=== PATIENT | female | born 1955 | race Caucasian/White ===

== ENCOUNTER 2021-01-19 00:26 | Inpatient (IN) | payer MEDICARE, OTHER ==
[2021-01-19] MEDS ORDERED: Zofran 4 MG/2 ML VIAL IV ONE (01:06)
[2021-01-19] MEDS ORDERED: Zofran 4 MG/2 ML VIAL ONE (01:38)
[2021-01-19 01:54] LABS: Basophil (Absolute #) 0.04 (0-0.4); Eosinophil (Absolute #) 0.31 (0-0.5); Hematocrit 49.3 % (35-47); Hemoglobin 15.7 gm/dl (12.0-16.0); Lymphocyte (Absolute #) 2.43 (1.0-4.6); Mean Cell Volume 93.5 fl (78-100); Mean Corpuscular Hemoglobin 29.8 pg (26-32); Mean Corpuscular Hgb Concent. 31.8 g/dl (32-36); Mean Platelet Volume 9.5 fl (7.5-11.0); Monocyte (Absolute #) 1.32 (0.0-1.3); Platelet Count 316 K/mm3 (150-450); Red Blood Count 5.27 M/mm3 (4.1-5.4); Red Cell Distribution Width 13.5 % (11.5-14.0)
[2021-01-19] MEDS ORDERED: TORAdol 30 mg Injection IV ONE (01:59)
[2021-01-19] MEDS ORDERED: TORAdol 30 mg Injection ONE (02:00)
[2021-01-19 02:06] LABS: ALBUMIN 4.9 g/dL (3.5-5.0); ALKALINE PHOSPHATASE 105 U/L (38-126); AMYLASE 239 U/L (30-110); ANION GAP 18.7 MEQ/L (5-15); Appearance CLEAR (CLEAR); BLOOD UREA NITROGEN 16 mg/dL (7-17); Bilirubin NEGATIVE (NEGATIVE); Blood NEGATIVE Ery/ul (0-5); CHLORIDE 101 mmol/L (98-107); Calcium 10.4 mg/dL (8.4-10.2); Carbon Dioxide 25 mmol/L (22-30); Creatinine 1 0.72 mg/dL (0.52-1.04); EST GLOMERULAR FILTRATION RATE > 60.0 ML/MIN; Glucose 174 mg/dL (74-106); Glucose NEGATIVE (NEGATIVE); Hyaline Casts 0-2 /LPF (0-2); Ketones NEGATIVE (NEGATIVE); LIPASE 59 U/L (23-300); Leukocyte Esterase NEGATIVE (NEGATIVE); Nitrite NEGATIVE (NEGATIVE); Potassium 3.7 mmol/L (3.5-5.1); Protein,Urine Dip NEGATIVE (Negative); RBC 0-2 /HPF (0-2); SGOT/AST 30 U/L (14-36); SGPT/ALT 21 U/L (0-35); SODIUM 141 mmol/L (137-145); Specific Gravity 1.006 (1.005-1.025); Total Protein 8.2 g/dL (6.3-8.2); Urobilinogen NEGATIVE mg/dL (0-1)
[2021-01-19 02:14] LABS: White Blood Count 26.4 K/mm3 (4.0-10.5)
[2021-01-19 02:21] LABS: Slide Review 1 NO
[2021-01-19] MEDS ORDERED: MORPHINE SULFATE 2 MG INJ IV ONE ×2 (02:43→05:20)
[2021-01-19] MEDS ORDERED: MORPHINE SULFATE 2 MG INJ ONE ×2 (02:44→05:28)
--- NOTE | 2021-01-19 02:48 | ERPHSYRPT ---
- History of Present Illness Historian: patient, EMS Patient Subjective Stated Complaint: pt states "I was sitting on the couch and my stomach began to hurt and I had diarrhea." Triage Nursing Assessment: pt came into the er via ambulance; pt is axo x4; c/o abd pain; pt states 3/10 pain to abd; c/o N/V/D; pt has had diarrhea for the past 1.5 hours; pt states all over abd pain; pt has active liquid rust in color stool; abd is large, soft; generalized abd tenderness; pt has been on the toliet the entire time of assessment; hypertensive; pt states she had a scope on nov 14 with polyps removed Physician History: 65 yo wf w N/V/D starting at 23:00. Pt states that the pain is 8/10 and cramping. She denies chest pain/fever/dyspnea/dysuria/hematuria/melena. Stool appears to have some blood in it. Timing/Duration: other (23:00) Activities at Onset: rest Quality: cramping Abdominal Pain Onset Location: generalized abdomen Pain Radiation: no radiation Severity of Pain-Max: severe Severity of Pain-Current: severe Modifying Factors: Improves With: nothing Associated Symptoms: diarrhea, nausea, vomiting, weakness, No back, No chest pain, No diaphoresis, No fever/chills, No fatigue, No headache, No heartburn, No loss of appetite, No neck pain, No rash, No shortness of breath, No syncope Previous symptoms: no prior history Allergies/Adverse Reactions: Iodinated Contrast Media Allergy (Severe, Verified 01/19/21:25) Anaphylactic Reaction nitrofurantoin [From Macrodantin] Allergy (Severe, Verified 01/19/21:25) Anaphylactic Reaction acetaminophen [From Vicodin] Allergy (Verified 01/19/21:25) Itching amoxicillin [From Augmentin] Allergy (Verified 01/19/21:) Vomiting clavulanic acid [From Augmentin] Allergy (Verified 01/19/21) Vomiting fentanyl Allergy (Verified 01/19/21) Hives hydrocodone [From Vicodin] Allergy (Verified 01/19/21:) Itching hydromorphone [From Dilaudid] Allergy (Verified 01/19/21:) Hives Sulfa (Sulfonamide Antibiotics) Allergy (Verified 01/19/21 01:25) Hives sulfamethoxazole [From ] Allergy (Verified 01/19/21 01:25) Vomiting trimethoprim [From ] Allergy (Verified 01/19/21 01:25) Vomiting Home Medications: Amlodipine Besylate 5 mg [Norvasc 5 mg] 5 mg PO DAILY 01/19/21 [History] Aspirin 81 mg PO HS 01/19/21 [History] Atorvastatin Calcium [Lipitor] 20 mg PO HS 01/19/21 [History] Bupropion HCl [Wellbutrin Sr] 200 mg PO BID 01/19/21 [History] Carvedilol 6.25 mg [Coreg 6.25 MG] 6.25 mg PO BID 01/19/21 [History] Dicyclomine HCl 20 mg [Bentyl 20 mg] 20 mg PO TID PRN PRN 01/19/21 [History] Estradiol [Estrace] 42.5 gm VG DAILY 01/19/21 [History] Nitroglycerin 0.4 mg SL Q5MIN PRN MR X 3 PRN 01/19/21 [History] Oxybutynin Chloride [Oxybutynin Chloride ER] 10 mg PO BID 01/19/21 [History] Umeclidinium Brm/Vilanterol Tr [Anoro Ellipta 62.5-25 Mcg INH] 1 each IH LUNCH 01/19/21 [History] lisinopriL [Lisinopril] 10 mg PO HS 01/19/21 [History] Hx Tetanus, Diphtheria Vaccination/Date Given: No Hx Influenza Vaccination/Date Given: No Hx Pneumococcal Vaccination/Date Given: No Travel Risk - International Travel Have you traveled outside of the country in past 3 weeks: No - Coronavirus Screening Are you exhibiting any of the following symptoms?: Yes Symptoms: Vomiting/Diarrhea Close contact with a COVID-19 positive Pt in past 14-21 Days: No - Vaccine Status Have you recieved a Covid-19 vaccination: No - Review of Systems Constitutional: No Symptoms, Fatigue Eyes: No Symptoms Ears, Nose, & Throat: No Symptoms Respiratory: No Symptoms Cardiac: No Symptoms Abdominal/Gastrointestinal: No Symptoms, Abdominal Pain, Nausea, Vomiting, Diarrhea Genitourinary Symptoms: No Symptoms Musculoskeletal: No Symptoms Skin: No Symptoms Neurological: No Symptoms Psychological: No Symptoms Endocrine: No Symptoms Hematologic/Lymphatic: No Symptoms Immunological/Allergic: No Symptoms - Past Medical History Pertinent Past Medical History: Yes Neurological History: Stroke ENT History: No Pertinent History Cardiac History: Hypertension, Myocardial Infarction ([place]), Other Respiratory History: Asthma Endocrine Medical History: No Pertinent History Musculoskeletal History: No Pertinent History GI Medical History: Hemorrhoids, Polyps History: Other Psycho-Social History: Anxiety, Depression Female Reproductive Disorders: No Pertinent History Other Medical History: nodule on lung and adrenal gland, frequent UTI, mitral valve prolapse - Past Surgical History Past Surgical History: Yes Neuro Surgical History: No Pertinent History Cardiac: Cardiac Catheterization Respiratory: No Pertinent History Gastrointestinal: Cholecystectomy Genitourinary: No Pertinent History Musculoskeletal: Orthopedic Surgery Female Surgical History: Hysterectomy, Section, Tubal Ligation Other Surgical History: left ankle, rotator cuff, carpal tunnel, blockage to rt corotid - Social History Smoking Status: Never smoker Exposure to second hand smoke: Yes Drug Use: none Patient Lives Alone: No - Female History Hx Now: No - Nursing Vital Signs Nursing Vital Signs: Initial Vital Signs Temperature 97.8 F 01/19/21 00:41 Pulse Rate 68 01/19/21 00:41 Respiratory Rate 18 01/19/21 00:41 Blood Pressure 194/96 01/19/21 00:41 O2 Sat by Pulse Oximetry 99 01/19/21 00:41 Pain Scale Pain Intensity 9 Hypertensive - Physical Exam General Appearance: mild distress Eye Exam: PERRL/EOMI, eyes nml inspection Ears, Nose, Throat Exam: normal ENT inspection, TMs normal, pharynx normal, moist mucous membranes Neck Exam: normal inspection, non-tender, supple, full range of motion, No men ingismus, No mass, No Brudzinski, No Kernig's Respiratory Exam: normal breath sounds, lungs clear, airway intact Cardiovascular Exam: regular rate/rhythm, normal heart sounds, normal peripheral pulses, No murmur Gastrointestinal/Abdomen Exam: soft, normal bowel sounds, tenderness (Diffuse TTP w guarding) Back Exam: normal inspection, normal range of motion, No CVA tenderness, No vertebral tenderness Extremity Exam: normal inspection, normal range of motion Neurologic Exam: alert, oriented x 3, cooperative, anesthesiology fellow II-XII nml as tested, normal mood/affect, sensation nml, No motor deficits, No sensory deficit Skin Exam: normal color, warm, dry Lymphatic Exam: No adenopathy SpO2 Interpretation: normal SpO2: 99 O2 Delivery: Room Air - Course EKG Interpreted by Me: RATE (NSR/R74/Normal QT-QTc/Poor R wave progression/RBBB) Ordered Tests: Medication Summary Discontinued Medications Generic Name Dose Route Start Last Admin Trade Name Freq PRN Reason Stop Dose Admin Acetaminophen 650 mg 01/20/21 15:12 01/25/21 04:58 Acetaminophen 325 Mg Tablet PO 02/19/21 15:11 650 mg Q4H PRN PRN Administration PAIN AND/OR FEVER Amlodipine Besylate 5 mg 01/19/21 13:00 01/24/21 09:35 Amlodipine Besylate 5 Mg Tablet PO 02/18/21 12:59 5 mg DAILY OSORIO Administration Carvedilol 6.25 mg 01/19/21 17:00 01/25/21 09:02 Carvedilol 6.25 Mg Tablet PO 02/18/21 16:59 6.25 mg BIDWM OSORIO Administration Diphenhydramine HCl 25 mg 01/20/21 17:23 01/20/21 17:33 Diphenhydramine Hcl 25 Mg Capsule PO 02/19/21 17:22 25 mg QIDPRN PRN Administration ITCHING Enalaprilat 1.25 mg 01/19/21 03:43 01/19/21 03:48 Enalaprilat 2.5 Mg Injection IV 01/19/21 03:44 1.25 mg STAT ONE Administration Enalaprilat Confirm 01/19/21 03:48 Enalaprilat 2.5 Mg Injection Administered 01/19/21 03:49 Dose 2.5 mg IV .STK-MED ONE Hydromorphone HCl 30 mg 01/19/21 12:38 01/20/21 18:21 Hydromorphone Hcl 30 Mg/30 Ml Mortgage Loan Assistant Vial IV 01/24/21 12:37 30 mg UD PRN Administration PAIN Hydromorphone HCl 2 mg 01/20/21 12:15 01/23/21 19:49 Hydromorphone 1 Mg/1ml Inj 1 Mg/Ml Syringe IV 01/25/21 12:14 2 mg Q3H PRN PRN Administration PAIN Hydromorphone HCl Confirm 01/22/21 01:09 Hydromorphone 1 Mg/1ml Inj 1 Mg/Ml Syringe Administered 01/22/21 01:10 Dose 2 mg .ROUTE .STK-MED ONE Sodium Chloride 1,000 mls @ 50 mls/hr 01/19/21 06:00 01/24/21 17:58 Sodium Chloride 0.9% 1000 Ml IV 02/18/21 05:59 50 mls/hr .Q20H OSORIO Administration Levofloxacin/Dextrose 500 mg in 100 mls @ 100 mls/hr 01/19/21 10:00 01/20/21 08:58 Levofloxacin 500mg/100ml D5w IV 02/18/21 09:59 100 mls/hr Q24H10 OSORIO Administration Metronidazole 500 mg in 100 mls @ 200 mls/hr 01/19/21 06:00 01/25/21 05:54 Flagyl 500 Mg Ivpb IV 02/18/21 05:59 200 mls/hr Q6HT OSORIO Administration Sodium Chloride 1,000 mls @ 999 mls/hr 01/19/21 05:55 01/19/21 06:04 Sodium Chloride 0.9% 1000 Ml IV 01/19/21 06:55 999 mls/hr .Q1H1M STA Administration Meropenem 1 g/ Sodium Chloride 100 mls @ 200 mls/hr 01/21/21 08:00 01/25/21 05:00 IV 01/26/21 07:59 200 mls/hr Q8HT OSORIO Administration Potassium Chloride 20 meq in 100 mls @ 50 mls/hr 01/23/21 07:00 01/23/21 10:57 Potassium Chloride 20 Meq In Water 100ml IV 01/23/21 10:59 50 mls/hr Q2H OSORIO Administration Ketorolac Tromethamine 15 mg 01/19/21 01:59 01/19/21 02:04 Ketorolac Tromethamine 30 Mg/Ml Inj IV 01/19/21 02:00 15 mg STAT ONE Administration Ketorolac Tromethamine Confirm 01/19/21 02:00 Ketorolac Tromethamine 30 Mg/Ml Inj Administered 01/19/21 02:01 Dose 30 mg .ROUTE .STK-MED ONE Lisinopril 10 mg 01/19/21 22:00 01/24/21 21:26 Lisinopril 10 Mg Tablet PO 02/18/21 21:59 10 mg HS OSORIO Administration Miscellaneous Information 1 each 01/19/21 12:45 Medication Intervention 1 Each Each 02/18/21 12:44 .RT TO CHECK WITH PT [facility] Miscellaneous Information 1 each 01/19/21 13:00 Medication Intervention 1 Each Each 02/18/21 12:59 .RN TO CHECK WITH PT [facility] Morphine Sulfate 2 mg 01/19/21 02:43 01/19/21 02:46 Morphine Sulfate 2 Mg/Ml Inj IV 01/19/21 02:44 2 mg STAT ONE Administration Morphine Sulfate Confirm 01/19/21 02:44 Morphine Sulfate 2 Mg/Ml Inj Administered 01/19/21 02:45 Dose 2 mg .ROUTE .STK-MED ONE Morphine Sulfate 2 mg 01/19/21 05:20 01/19/21 05:29 Morphine Sulfate 2 Mg/Ml Inj IV 01/19/21 05:21 2 mg STAT ONE Administration Morphine Sulfate Confirm 01/19/21 05:28 Morphine Sulfate 2 Mg/Ml Inj Administered 01/19/21 05:29 Dose 2 mg .ROUTE .STK-MED ONE Morphine Sulfate 2 mg 01/19/21 05:50 01/19/21 10:05 Morphine Sulfate 2 Mg/Ml Inj IV 01/24/21 05:49 2 mg Q4H PRN PRN Administration PAIN Nitroglycerin 0.4 mg 01/19/21 11:46 Nitroglycerin 0.4 Mg Tablet Bottle SL 02/18/21 11:45 Q5MIN PRN MR X 3 PRN CHEST PAIN Non-Formulary Medication 1 each 01/21/21 06:26 01/21/21 12:44 Pharmacy Dosing Request 01/21/21 06:27 1 each STAT ONE Administration Ondansetron HCl 4 mg 01/19/21 01:06 01/19/21 01:40 Ondansetron Hcl 4 Mg/2 Ml Vial IV 01/19/21 01:07 4 mg STAT ONE Administration Ondansetron HCl Confirm 01/19/21 01:38 Ondansetron Hcl 4 Mg/2 Ml Vial Administered 01/19/21 01:39 Dose 4 mg .ROUTE .STK-MED ONE Ondansetron HCl 4 mg 01/19/21 05:50 01/19/21 07:01 Ondansetron Hcl 4 Mg/2 Ml Vial IV 02/18/21 05:49 4 mg Q6H PRN PRN Administration NAUSEA/VOMITING Ondansetron HCl 4 mg 01/19/21 12:35 01/24/21 06:08 Ondansetron Hcl 4 Mg/2 Ml Vial IV 02/18/21 12:33 4 mg Q4HPRN PRN Administration NAUSEA/VOMITING Oxybutynin Chloride 10 mg 01/21/21 10:00 01/24/21 21:26 Oxybutynin Chloride Xl 5 Mg Tab PO 02/20/21 09:59 10 mg BID OSORIO Administration Oxycodone/Acetaminophen 1 tab 01/23/21 14:56 01/25/21 09:02 Oxycodone / Apap 10/325 Mg 1 Tablet PO 01/28/21 14:55 1 tab Q6HPRN PRN Administration Pantoprazole Sodium 40 mg 01/19/21 10:00 01/24/21 09:36 Pantoprazole 40 Mg Vial IV 02/18/21 09:59 40 mg Q24H10 OSORIO Administration Patient Own Med : 1 each 01/20/21 14:30 01/24/21 11:07 Anoro Ellipta 62.5/ IH 02/19/21 14:29 Not Given 25 DAILY@1200 OSORIO Patient Own Med : 1 each 01/21/21 10:00 01/24/21 21:27 Wellbutrin Er 200 Mg PO 02/20/21 09:59 1 each BID OSORIO Administration Potassium Bicarbonate 25 meq 01/25/21 06:30 01/25/21 06:34 Potassium Bicarbonate 25 Meq Tab PO 01/25/21 06:31 25 meq STAT ONE Administration Potassium Bicarbonate 25 meq 01/26/21 10:00 Potassium Bicarbonate 25 Meq Tab PO DAILY OSORIO Potassium Chloride 20 meq 01/24/21 11:10 01/24/21 11:27 Potassium Chloride 10 Meq Tablet PO 01/24/21 11:11 20 meq STAT ONE Administration Simvastatin 20 mg 01/19/21 22:00 01/24/21 21:26 Simvastatin 20 Mg Tablet PO 02/18/21 21:59 20 mg HS OSORIO Administration Throat Lozenges 15 mg 01/24/21 10:29 01/24/21 11:01 Benzocaine/Menthol 15 Mg Lozenge - Cepacol PO 02/23/21 10:28 15 mg PRN PRN Administration SORETHROAT Lab/Rad Data: Laboratory Result Diagrams 01/19/21 07:15 01/19/21 01:48 Laboratory Results 01/19/21 01/19/21 01/19/21 Range/Units 10:20 07:15 07:10 WBC 19.8 H (4.0-10.5) K/mm3 RBC 5.33 (4.1-5.4) M/mm3 Hgb 16.2 H (12.0-16.0) gm/dl Hct 50.0 H (35-47) % MCV 93.8 (78-100) fl MCH 30.4 (26-32) pg MCHC 32.4 (32-36) g/dl RDW 13.9 (11.5-14.0) % Plt Count 322 (150-450) K/mm3 MPV 10.7 (7.5-11.0) fl Gran % (36.0-66.0) % Eos # (Auto) (0-0.5) Absolute Lymphs (auto) (1.0-4.6) Absolute Monos (auto) (0.0-1.3) Lymphocytes % (24.0-44.0) % Monocytes % (0.0-12.0) % Eosinophils % (0.00-5.0) % Basophils % (0.0-0.4) % Absolute Granulocytes (1.4-6.9) Segmented Neutrophils 88 H (36.0-66.0) % Lymphocytes (Manual) 8 L (24-44) % Monocytes (Manual) 4 (0.0-12.0) % Basophils (Manual) (0.0-1.0) % Basophils # (0-0.4) Toxic Granulation Platelet Estimate NORMAL (NORMAL) RBC Morphology NORMAL Smear Path Review Sodium (137-145) mmol/L Potassium (3.5-5.1) mmol/L Chloride (98-107) mmol/L Carbon Dioxide (22-30) mmol/L Anion Gap (5-15) MEQ/L BUN (7-17) mg/dL Creatinine (0.52-1.04) mg/dL Estimated GFR ML/MIN Glucose (74-106) mg/dL Calcium (8.4-10.2) mg/dL Total Bilirubin (0.2-1.3) mg/dL AST (14-36) U/L ALT (0-35) U/L Alkaline Phosphatase (38-126) U/L Troponin I < 0.012 < 0.012 (0.000-0.034) ng/mL Serum Total Protein (6.3-8.2) g/dL Albumin (3.5-5.0) g/dL Amylase (30-110) U/L Lipase (23-300) U/L Urine Color (YELLOW) Urine Appearance (CLEAR) Urine pH (5-6) Ur Specific Eugene (1.005-1.025) Urine Protein (Negative) Urine Ketones (NEGATIVE) Urine Blood (0-5) Usman/ul Urine Nitrite (NEGATIVE) Urine Bilirubin (NEGATIVE) Urine Urobilinogen (0-1) mg/dL Ur Leukocyte Esterase (NEGATIVE) Urine WBC (Auto) (0-5) /HPF Urine RBC (Auto) (0-2) /HPF U Hyaline Cast (Auto) (0-2) /LPF U Epithel Cells (Auto) (FEW) /HPF Urine Bacteria (Auto) (NEGATIVE) /HPF Urine Culture Reflexed (NO) Urine Glucose (NEGATIVE) mg/dL SARS-CoV-2 (PCR) (NEGATIVE) Slides for Path Review 01/19/21 01/19/21 01/19/21 Range/Units 05:20 01:50 01:48 WBC (4.0-10.5) K/mm3 RBC (4.1-5.4) M/mm3 Hgb (12.0-16.0) gm/dl Hct (35-47) % MCV (78-100) fl MCH (26-32) pg MCHC (32-36) g/dl RDW (11.5-14.0) % Plt Count (150-450) K/mm3 MPV (7.5-11.0) fl Gran % (36.0-66.0) % Eos # (Auto) (0-0.5) Absolute Lymphs (auto) (1.0-4.6) Absolute Monos (auto) (0.0-1.3) Lymphocytes % (24.0-44.0) % Monocytes % (0.0-12.0) % Eosinophils % (0.00-5.0) % Basophils % (0.0-0.4) % Absolute Granulocytes (1.4-6.9) Segmented Neutrophils (36.0-66.0) % Lymphocytes (Manual) (24-44) % Monocytes (Manual) (0.0-12.0) % Basophils (Manual) (0.0-1.0) % Basophils # (0-0.4) Toxic Granulation Platelet Estimate (NORMAL) RBC Morphology Smear Path Review Sodium (137-145) mmol/L Potassium (3.5-5.1) mmol/L Chloride (98-107) mmol/L Carbon Dioxide (22-30) mmol/L Anion Gap (5-15) MEQ/L BUN (7-17) mg/dL Creatinine (0.52-1.04) mg/dL Estimated GFR ML/MIN Glucose (74-106) mg/dL Calcium (8.4-10.2) mg/dL Total Bilirubin (0.2-1.3) mg/dL AST (14-36) U/L ALT (0-35) U/L Alkaline Phosphatase (38-126) U/L Troponin I < 0.012 < 0.012 (0.000-0.034) ng/mL Serum Total Protein (6.3-8.2) g/dL Albumin (3.5-5.0) g/dL Amylase (30-110) U/L Lipase (23-300) U/L Urine Color (YELLOW) Urine Appearance (CLEAR) Urine pH (5-6) Ur Specific Eugene (1.005-1.025) Urine Protein (Negative) Urine Ketones (NEGATIVE) Urine Blood (0-5) Usman/ul Urine Nitrite (NEGATIVE) Urine Bilirubin (NEGATIVE) Urine Urobilinogen (0-1) mg/dL Ur Leukocyte Esterase (NEGATIVE) Urine WBC (Auto) (0-5) /HPF Urine RBC (Auto) (0-2) /HPF U Hyaline Cast (Auto) (0-2) /LPF U Epithel Cells (Auto) (FEW) /HPF Urine Bacteria (Auto) (NEGATIVE) /HPF Urine Culture Reflexed (NO) Urine Glucose (NEGATIVE) mg/dL SARS-CoV-2 (PCR) NEGATIVE (NEGATIVE) Slides for Path Review 01/19/21 01/19/21 01/19/21 Range/Units 01:48 01:48 01:48 WBC 26.4 H* (4.0-10.5) K/mm3 RBC 5.27 (4.1-5.4) M/mm3 Hgb 15.7 (12.0-16.0) gm/dl Hct 49.3 H (35-47) % MCV 93.5 (78-100) fl MCH 29.8 (26-32) pg MCHC 31.8 L (32-36) g/dl RDW 13.5 (11.5-14.0) % Plt Count 316 (150-450) K/mm3 MPV 9.5 (7.5-11.0) fl Gran % (36.0-66.0) % Eos # (Auto) 0.31 (0-0.5) Absolute Lymphs (auto) 2.43 (1.0-4.6) Absolute Monos (auto) 1.32 H (0.0-1.3) Lymphocytes % (24.0-44.0) % Monocytes % (0.0-12.0) % Eosinophils % (0.00-5.0) % Basophils % (0.0-0.4) % Absolute Granulocytes (1.4-6.9) Segmented Neutrophils 80 H (36.0-66.0) % Lymphocytes (Manual) 10 L (24-44) % Monocytes (Manual) 9 (0.0-12.0) % Basophils (Manual) 1 (0.0-1.0) % Basophils # 0.04 (0-0.4) Toxic Granulation 1+ Platelet Estimate NORMAL (NORMAL) RBC Morphology NORMAL Smear Path Review Sodium 141 (137-145) mmol/L Potassium 3.7 (3.5-5.1) mmol/L Chloride 101 (98-107) mmol/L Carbon Dioxide 25 (22-30) mmol/L Anion Gap 18.7 H (5-15) MEQ/L BUN 16 (7-17) mg/dL Creatinine 0.72 (0.52-1.04) mg/dL Estimated GFR > 60.0 ML/MIN Glucose 174 H (74-106) mg/dL Calcium 10.4 H (8.4-10.2) mg/dL Total Bilirubin 1.90 H (0.2-1.3) mg/dL AST 30 (14-36) U/L ALT 21 (0-35) U/L Alkaline Phosphatase 105 (38-126) U/L Troponin I (0.000-0.034) ng/mL Serum Total Protein 8.2 (6.3-8.2) g/dL Albumin 4.9 (3.5-5.0) g/dL Amylase 239 H (30-110) U/L Lipase 59 (23-300) U/L Urine Color YELLOW (YELLOW) Urine Appearance CLEAR (CLEAR) Urine pH 7.0 (5-6) Ur Specific Eugene 1.006 (1.005-1.025) Urine Protein NEGATIVE (Negative) Urine Ketones NEGATIVE (NEGATIVE) Urine Blood NEGATIVE (0-5) Usman/ul Urine Nitrite NEGATIVE (NEGATIVE) Urine Bilirubin NEGATIVE (NEGATIVE) Urine Urobilinogen NEGATIVE (0-1) mg/dL Ur Leukocyte Esterase NEGATIVE (NEGATIVE) Urine WBC (Auto) 3-5 (0-5) /HPF Urine RBC (Auto) 0-2 (0-2) /HPF U Hyaline Cast (Auto) 0-2 (0-2) /LPF U Epithel Cells (Auto) NONE (FEW) /HPF Urine Bacteria (Auto) NONE (NEGATIVE) /HPF Urine Culture Reflexed NO (NO) Urine Glucose NEGATIVE (NEGATIVE) mg/dL SARS-CoV-2 (PCR) (NEGATIVE) Slides for Path Review NO - Progress Progress: improved Progress Note: 01/19/21 05:[address] Ferro 15mg IV Toradol wo improvement in pain 2mg IV MSO4 w improvement in pain 2mg IV MSO4 w improvement in pain after pain escalated again 1.25mg IV Vasotec w improvement in BP 01/19/21 05:57 1L NS bolus Discussed with : Evelyn Counseled pt/family regarding: lab results, diagnosis, need for follow-up, rad results - Departure Departure Disposition: Observation Clinical Impression: Colitis Condition: Stable Critical Care Time: No
[2021-01-19] MEDS ORDERED: VASOTEC I.V. 2.5 MG IV ONE ×2 (03:43→03:48)
[2021-01-19 05:24] LABS: Basophil 1 % (0.0-1.0); Lymphocytes 10 % (24-44); Monocyte 9 % (0.0-12.0); Neutrophils 80 % (36.0-66.0); Total Cells Counted 100
[2021-01-19 05:25] LABS: Platelet Estimate NORMAL (NORMAL); Toxic Granulation 1+
[2021-01-19] MEDS ORDERED: MORPHINE SULFATE 2 MG INJ IV PRN (05:50)
[2021-01-19] MEDS ORDERED: Zofran 4 MG/2 ML VIAL IV PRN (05:50)
[2021-01-19] MEDS ORDERED: Sodium Chloride 0.9% 1000 ML 1,000 ML IV STA (05:55)
[2021-01-19] MEDS: FLAGYL 500 MG IVPB 500 MG/100 ML BAG IV SCH ×4 (07:08→23:58)
[2021-01-19] MEDS: Sodium Chloride 0.9% 1000 ML 1,000 ML IV SCH ×2 (07:53→21:24)
--- NOTE | 2021-01-19 08:24 | XRAY ---
Indication: Abdomen pain, vomiting, diarrhea, and weakness. Multiple contiguous axial images obtained through the abdomen and pelvis using 80 cc Isovue 370 contrast. Comparison: None Lung bases demonstrates minimal fibrosis/scarring. No infiltrate or effusion. Heart not enlarged. Noncontrasted stomach and bowel loops appear nonobstructed colon, especially transverse demonstrates mild circumferential wall thickening with enhancement either incomplete distention versus colitis. No free fluid/air. Appendectomy, cholecystectomy, and hysterectomy reported. Minimal pneumobilia. Tiny 6 mm left renal cyst. Remaining liver, pancreas, spleen, adrenal glands, kidneys, ureters, and bladder are unremarkable. Minimal aortic calcifications. No AAA or pathological retroperitoneal lymphadenopathy. Osseous structures intact with minimal/mild multilevel degenerative spondylosis, 2 mm L4 spondylolisthesis, and L5-S1 laminectomy. Impression: 1. Mild colonic wall thickening and enhancement either incomplete distention versus mild/early colitis. 2. Tiny left renal cyst and chronic bony findings. 3. Remaining CT abdomen/pelvis with contrast exam is negative. Comment: Preliminary interpretation made by [facility]. No critical discrepancy.
[2021-01-19] MEDS: PROTONIX 40 MG IV IV SCH (08:35)
[2021-01-19] MEDS: Levofloxacin 500MG/100ML D5W 500 MG/100 ML BAG IV SCH (08:35)
[2021-01-19] MEDS ORDERED: Nitrostat 0.4 MG Tablet SL PRN (11:46)
[2021-01-19] MEDS ORDERED: MEDICATION INTERVENTION MC SCH ×2 (12:45→13:00)
[2021-01-19] MEDS: DILAUDID 1 MG/1ML PCA IV PRN (13:36)
[2021-01-19] MEDS: NORVASC 5 MG PO SCH (13:49)
[2021-01-19] MEDS: Zofran 4 MG/2 ML VIAL IV PRN ×2 (13:55→21:29)
[2021-01-19 15:07] LABS: Hemoglobin 16.2 gm/dl (12.0-16.0); Mean Cell Volume 93.8 fl (78-100); Mean Corpuscular Hemoglobin 30.4 pg (26-32); Mean Corpuscular Hgb Concent. 32.4 g/dl (32-36); Mean Platelet Volume 10.7 fl (7.5-11.0); Platelet Count 322 K/mm3 (150-450); Red Blood Count 5.33 M/mm3 (4.1-5.4); Red Cell Distribution Width 13.9 % (11.5-14.0); White Blood Count 19.8 K/mm3 (4.0-10.5)
[2021-01-19 15:39] LABS: Lymphocytes 8 % (24-44); Monocyte 4 % (0.0-12.0); Neutrophils 88 % (36.0-66.0); Platelet Estimate NORMAL (NORMAL); Total Cells Counted 100
[2021-01-19] MEDS: Coreg 6.25 MG PO SCH (18:16)
[2021-01-19] MEDS: ZOCOR 20MG PO SCH (21:25)
[2021-01-19] MEDS: Zestril 10 MG PO SCH (21:25)
[2021-01-19] MEDS ORDERED: BUPROPION HCL 200 MG PO SCH (22:00)
[2021-01-19] MEDS ORDERED: NON-FORMULARY ITEM (Atorvastatin Calcium [Lipitor] 20 MG Tablet) PO SCH (22:00)
[2021-01-20] MEDS: Zofran 4 MG/2 ML VIAL IV PRN ×2 (01:28→06:59)
[2021-01-20] MEDS: FLAGYL 500 MG IVPB 500 MG/100 ML BAG IV SCH ×4 (05:45→23:27)
[2021-01-20 06:32] LABS: Hematocrit 43.5 % (35-47); Hemoglobin 13.5 gm/dl (12.0-16.0); Mean Cell Volume 95.8 fl (78-100); Mean Corpuscular Hemoglobin 29.7 pg (26-32); Mean Platelet Volume 10.1 fl (7.5-11.0); Platelet Count 285 K/mm3 (150-450); Red Blood Count 4.54 M/mm3 (4.1-5.4); Red Cell Distribution Width 14.1 % (11.5-14.0); White Blood Count 22.7 K/mm3 (4.0-10.5)
[2021-01-20 06:49] LABS: ALBUMIN 3.8 g/dL (3.5-5.0); ANION GAP 15.5 MEQ/L (5-15); BILIRUBIN,TOTAL 1.6 mg/dL (0.2-1.3); Calcium 8.7 mg/dL (8.4-10.2); Creatinine 1 1.27 mg/dL (0.52-1.04); EST GLOMERULAR FILTRATION RATE 44.9 ML/MIN; Potassium 4.3 mmol/L (3.5-5.1); Total Protein 6.4 g/dL (6.3-8.2)
[2021-01-20] MEDS: Sodium Chloride 0.9% 1000 ML 1,000 ML IV SCH ×2 (06:56→20:39)
[2021-01-20] MEDS: Coreg 6.25 MG PO SCH ×2 (08:01→17:29)
[2021-01-20 08:24] LABS: ATYPICAL LYMPHS 4 %; BAND 3 % (0.0-2.0); Lymphocytes 10 % (24-44); Monocyte 7 % (0.0-12.0); Neutrophils 76 % (36.0-66.0); Total Cells Counted 100
[2021-01-20 08:25] LABS: Platelet Estimate NORMAL (NORMAL)
[2021-01-20] MEDS: NORVASC 5 MG PO SCH (08:58)
[2021-01-20] MEDS: Levofloxacin 500MG/100ML D5W 500 MG/100 ML BAG IV SCH (08:58)
[2021-01-20] MEDS: PROTONIX 40 MG IV IV SCH (08:58)
[2021-01-20] MEDS: PATIENT OWN MEDICATION IH SCH (15:00)
[2021-01-20] MEDS: TYLENOL 325 MG PO PRN (16:02)
[2021-01-20] MEDS ORDERED: BENADRYL 25 MG CAPSULE PO PRN (17:23)
[2021-01-20] MEDS: DILAUDID 1 MG/1ML PCA IV PRN (18:21)
[2021-01-20] MEDS: Zestril 10 MG PO SCH (21:49)
[2021-01-20] MEDS: ZOCOR 20MG PO SCH (21:49)
[2021-01-21] MEDS: FLAGYL 500 MG IVPB 500 MG/100 ML BAG IV SCH ×4 (05:28→23:46)
[2021-01-21 06:07] LABS: Hematocrit 37.2 % (35-47); Hemoglobin 11.6 gm/dl (12.0-16.0); Mean Cell Volume 96.6 fl (78-100); Mean Corpuscular Hemoglobin 30.1 pg (26-32); Mean Corpuscular Hgb Concent. 31.2 g/dl (32-36); Platelet Count 240 K/mm3 (150-450); Red Blood Count 3.85 M/mm3 (4.1-5.4); Red Cell Distribution Width 13.7 % (11.5-14.0); White Blood Count 19.8 K/mm3 (4.0-10.5)
[2021-01-21] MEDS ORDERED: PHARMACY DOSING REQUEST MC ONE (06:26)
[2021-01-21 06:32] LABS: ALBUMIN 3.1 g/dL (3.5-5.0); ALKALINE PHOSPHATASE 53 U/L (38-126); ANION GAP 12.1 MEQ/L (5-15); BLOOD UREA NITROGEN 17 mg/dL (7-17); CHLORIDE 109 mmol/L (98-107); Calcium 8.8 mg/dL (8.4-10.2); Carbon Dioxide 24 mmol/L (22-30); Creatinine 1 0.91 mg/dL (0.52-1.04); EST GLOMERULAR FILTRATION RATE > 60.0 ML/MIN; Glucose 88 mg/dL (74-106); Potassium 3.7 mmol/L (3.5-5.1); SGOT/AST 19 U/L (14-36); SGPT/ALT 11 U/L (0-35); SODIUM 141 mmol/L (137-145); Total Protein 5.5 g/dL (6.3-8.2)
[2021-01-21 06:46] LABS: Eosinophil 1 % (0.00-3.0); Lymphocytes 12 % (24-44); Monocyte 3 % (0.0-12.0); Neutrophils 84 % (36.0-66.0); Platelet Estimate NORMAL (NORMAL); Total Cells Counted 100
[2021-01-21] MEDS: PATIENT OWN MEDICATION IH SCH (06:56)
[2021-01-21] MEDS: Hydromorphone 1 mg/ml Injection IV PRN ×3 (07:33→21:28)
[2021-01-21] MEDS: PATIENT OWN MEDICATION PO SCH ×2 (07:33→21:23)
[2021-01-21] MEDS: Zofran 4 MG/2 ML VIAL IV PRN ×2 (07:33→16:49)
[2021-01-21] MEDS: Merrem 1 GM 1 G in Sodium Chloride 100ML MINI-BAG PLUS 100 ML IV SCH ×3 (08:10→21:23)
[2021-01-21] MEDS: Coreg 6.25 MG PO SCH ×2 (08:12→17:24)
[2021-01-21] MEDS: Sodium Chloride 0.9% 1000 ML 1,000 ML IV SCH ×2 (08:37→20:20)
--- NOTE | 2021-01-21 09:02 | CONS ---
CONSULT DATE: 01/19/2021 REASON FOR CONSULT: Abdominal pain and possible colitis. HISTORY: The patient is a 65-year-old female with multiple medical problems including some coronary artery disease. She has had silent myocardial infarctions in the past. She has had previous CVA. The patient has hypertension. Denies any diabetes. She came into the emergency room with sudden onset of abdominal pain which started yesterday around 6:00. She was evaluated in the emergency room. Her white count was 26,000. She had a CT scan that showed some mild wall thickening of the colon in this area. No free air. No evidence of perforation. No evidence of diverticulitis. It was significant for wall thickening which was consistent with localized colitis. At this point the patient also states that she has been passing some blood per rectum and overall her vitals seem to be stable and seems to overall be doing fine. PAST MEDICAL HISTORY: She has had silent myocardial infarctions in the past. She has had previous CVA. The patient has hypertension. Denies any diabetes. Her small products ii assembler is Dr. Marrero which she had seen a couple of weeks ago and seems to be doing okay from the cardiac standpoint. PAST SURGICAL HISTORY: Hysterectomy with bladder suspension. Also positive for history of cholecystectomy. She also had pancreatitis after the cholecystectomy which required ERCP and stent placement which was done in [place]. PHYSICAL EXAMINATION: She is alert and oriented. HEENT: Pupils are equal and normoreactive. NECK: Supple. COR: Regular rhythm. ABDOMEN: Seemed to be overall quite soft. EXTREMITIES: Within normal limits with no pedal edema. IMPRESSION: Colitis of the transverse colon which could be infectious in nature but with the patient's history the possibility of ischemic colitis localized in the transverse colon needs to also be ruled out. The CT failed to identify any pneumatosis of the colon. No signs of microperforation and at this point she seems to be stable enough her hemoglobin is 15, white count when she came in was 26,000 now with IV antibiotics seems to be going down to 19,000. She was started on Levaquin and Flagyl and she seemed to be overall doing fine. She states she is passing gas. Her bowels she is passing blood in the stool. At this point no immediate surgical intervention is needed. If she does have a localized colitis bacterial in nature can be managed with IV antibiotics. Because of her history of myocardial infarction plus strokes, potentially this could also be ischemic in nature. Hopefully she will collateralize enough to maintain good circulation of the transverse colon. Like I said, no immediate surgical intervention is needed. Will check lactate level and repeat CBC in the a.m. If we have any questions will transfer her to [facility] because she might require surgery with in which cardiac support and ICU with a small products ii assembler and call box wirer might be necessary in a patient that has her significant medical history. At this point will keep her here with IV antibiotics. I will see her back on rounds tomorrow. I have instructed the nurse to call me back if her condition changes or deteriorates by any means.
[2021-01-21] MEDS: Ditropan XL 5 MG PO SCH ×2 (12:05→21:23)
[2021-01-21] MEDS: NORVASC 5 MG PO SCH (12:05)
[2021-01-21] MEDS: PROTONIX 40 MG IV IV SCH (12:08)
[2021-01-21] MEDS: TYLENOL 325 MG PO PRN (12:24)
[2021-01-21 14:07] LABS: Hematocrit 36.1 % (35-47); Hemoglobin 11.3 gm/dl (12.0-16.0); Mean Cell Volume 96.8 fl (78-100); Mean Corpuscular Hemoglobin 30.3 pg (26-32); Mean Corpuscular Hgb Concent. 31.3 g/dl (32-36); Mean Platelet Volume 9.3 fl (7.5-11.0); Platelet Count 230 K/mm3 (150-450); Red Blood Count 3.73 M/mm3 (4.1-5.4); Red Cell Distribution Width 13.6 % (11.5-14.0); White Blood Count 18.3 K/mm3 (4.0-10.5)
[2021-01-21 14:56] LABS: ATYPICAL LYMPHS 1 %; Eosinophil 1 % (0.00-3.0); Lymphocytes 14 % (24-44); Monocyte 4 % (0.0-12.0); Neutrophils 80 % (36.0-66.0); Platelet Estimate NORMAL (NORMAL); Total Cells Counted 100
[2021-01-21] MEDS: Zestril 10 MG PO SCH (21:23)
[2021-01-21] MEDS: ZOCOR 20MG PO SCH (21:23)
[2021-01-22] MEDS: Zofran 4 MG/2 ML VIAL IV PRN ×5 (00:51→23:22)
[2021-01-22] MEDS ORDERED: Hydromorphone 1 mg/ml Injection ONE (01:09)
[2021-01-22] MEDS: Hydromorphone 1 mg/ml Injection IV PRN ×3 (01:14→17:45)
[2021-01-22] MEDS: FLAGYL 500 MG IVPB 500 MG/100 ML BAG IV SCH ×3 (05:31→17:09)
[2021-01-22 05:45] LABS: Absolute Neutrophil Ct (ANC) 14.17 (1.4-6.9); BASOPHIL % 0.2 % (0.0-0.4); Basophil (Absolute #) 0.03 (0-0.4); Eosinophil % 1.4 % (0.00-5.0); Eosinophil (Absolute #) 0.24 (0-0.5); Hematocrit 34.8 % (35-47); Hemoglobin 10.5 gm/dl (12.0-16.0); Lymphocyte (Absolute #) 1.94 (1.0-4.6); Mean Cell Volume 100.6 fl (78-100); Mean Corpuscular Hemoglobin 30.3 pg (26-32); Mean Corpuscular Hgb Concent. 30.2 g/dl (32-36); Mean Platelet Volume 9.8 fl (7.5-11.0); Monocyte (Absolute #) 1.29 (0.0-1.3); Monocytes % 7.3 % (0.0-12.0); Neutrophil % 80.1 % (36.0-66.0); Platelet Count 202 K/mm3 (150-450); Red Blood Count 3.46 M/mm3 (4.1-5.4); Red Cell Distribution Width 13.6 % (11.5-14.0); White Blood Count 17.7 K/mm3 (4.0-10.5)
[2021-01-22 05:57] LABS: ALBUMIN 2.7 g/dL (3.5-5.0); ALKALINE PHOSPHATASE 42 U/L (38-126); ANION GAP 9.7 MEQ/L (5-15); BLOOD UREA NITROGEN 11 mg/dL (7-17); CHLORIDE 108 mmol/L (98-107); Calcium 8.3 mg/dL (8.4-10.2); Carbon Dioxide 23 mmol/L (22-30); Creatinine 1 0.65 mg/dL (0.52-1.04); EST GLOMERULAR FILTRATION RATE > 60.0 ML/MIN; Glucose 92 mg/dL (74-106); Potassium 3.6 mmol/L (3.5-5.1); SGOT/AST 22 U/L (14-36); SGPT/ALT 10 U/L (0-35); SODIUM 138 mmol/L (137-145); Total Protein 4.8 g/dL (6.3-8.2)
[2021-01-22] MEDS: Merrem 1 GM 1 G in Sodium Chloride 100ML MINI-BAG PLUS 100 ML IV SCH ×3 (06:22→21:09)
[2021-01-22] MEDS: Coreg 6.25 MG PO SCH ×2 (07:20→16:26)
[2021-01-22] MEDS: Ditropan XL 5 MG PO SCH ×2 (09:45→21:07)
[2021-01-22] MEDS: PATIENT OWN MEDICATION PO SCH ×2 (09:46→21:09)
[2021-01-22] MEDS: NORVASC 5 MG PO SCH (09:46)
[2021-01-22] MEDS: PROTONIX 40 MG IV IV SCH (09:46)
[2021-01-22] MEDS: Sodium Chloride 0.9% 1000 ML 1,000 ML IV SCH (10:28)
[2021-01-22] MEDS: Zestril 10 MG PO SCH (21:07)
[2021-01-22] MEDS: ZOCOR 20MG PO SCH (21:08)
[2021-01-23] MEDS: FLAGYL 500 MG IVPB 500 MG/100 ML BAG IV SCH ×5 (01:54→23:47)
[2021-01-23] MEDS: Hydromorphone 1 mg/ml Injection IV PRN ×3 (03:33→19:49)
[2021-01-23] MEDS: Zofran 4 MG/2 ML VIAL IV PRN ×3 (03:39→19:54)
[2021-01-23] MEDS: Merrem 1 GM 1 G in Sodium Chloride 100ML MINI-BAG PLUS 100 ML IV SCH ×3 (05:00→22:59)
[2021-01-23 05:45] LABS: Hematocrit 34.5 % (35-47); Mean Cell Volume 93.8 fl (78-100); Mean Corpuscular Hemoglobin 29.9 pg (26-32); Mean Corpuscular Hgb Concent. 31.9 g/dl (32-36); Mean Platelet Volume 9.6 fl (7.5-11.0); Platelet Count 272 K/mm3 (150-450); Red Blood Count 3.68 M/mm3 (4.1-5.4); White Blood Count 15.4 K/mm3 (4.0-10.5)
[2021-01-23 05:55] LABS: ALBUMIN 3.2 g/dL (3.5-5.0); ALKALINE PHOSPHATASE 53 U/L (38-126); ANION GAP 10.7 MEQ/L (5-15); BLOOD UREA NITROGEN 7 mg/dL (7-17); CHLORIDE 106 mmol/L (98-107); Calcium 8.4 mg/dL (8.4-10.2); Carbon Dioxide 27 mmol/L (22-30); Creatinine 1 0.64 mg/dL (0.52-1.04); EST GLOMERULAR FILTRATION RATE > 60.0 ML/MIN; Glucose 104 mg/dL (74-106); SGOT/AST 24 U/L (14-36); SGPT/ALT 13 U/L (0-35); SODIUM 140 mmol/L (137-145); Total Protein 5.5 g/dL (6.3-8.2)
[2021-01-23 06:38] LABS: Potassium 2.9 mmol/L (3.5-5.1)
[2021-01-23] MEDS: POTASSIUM CHLORIDE 20 mEq IN WATER 100ML 20 MEQ/100 ML BAG IV SCH ×2 (07:52→10:57)
[2021-01-23] MEDS: Coreg 6.25 MG PO SCH ×2 (07:53→16:30)
[2021-01-23] MEDS: NORVASC 5 MG PO SCH (10:20)
[2021-01-23] MEDS: PROTONIX 40 MG IV IV SCH (10:20)
[2021-01-23] MEDS: Ditropan XL 5 MG PO SCH ×2 (10:20→21:27)
[2021-01-23] MEDS: PATIENT OWN MEDICATION PO SCH ×2 (10:21→21:28)
[2021-01-23] MEDS: PATIENT OWN MEDICATION IH SCH (11:03)
[2021-01-23 12:14] LABS: 027 TOX PROD PRESUMPTIVE NEGATIVE (NEGATIVE); TOXIGENIC C. DIFF ORG NEGATIVE (NEGATIVE)
[2021-01-23] MEDS ORDERED: OXYCODONE-ACETAMINOPHEN 10-325 PO PRN (14:56)
[2021-01-23] MEDS: Sodium Chloride 0.9% 1000 ML 1,000 ML IV SCH ×3 (16:30→22:48)
[2021-01-23] MEDS: ZOCOR 20MG PO SCH (21:28)
[2021-01-23] MEDS: Zestril 10 MG PO SCH (21:28)
[2021-01-24] MEDS: Merrem 1 GM 1 G in Sodium Chloride 100ML MINI-BAG PLUS 100 ML IV SCH ×3 (05:01→21:29)
[2021-01-24 05:41] LABS: Hematocrit 39.9 % (35-47); Hemoglobin 12.8 gm/dl (12.0-16.0); Mean Cell Volume 94.1 fl (78-100); Mean Corpuscular Hemoglobin 30.2 pg (26-32); Mean Corpuscular Hgb Concent. 32.1 g/dl (32-36); Mean Platelet Volume 9.8 fl (7.5-11.0); Platelet Count 302 K/mm3 (150-450); Red Blood Count 4.24 M/mm3 (4.1-5.4); Red Cell Distribution Width 13.2 % (11.5-14.0); White Blood Count 14.4 K/mm3 (4.0-10.5)
[2021-01-24] MEDS: FLAGYL 500 MG IVPB 500 MG/100 ML BAG IV SCH ×4 (06:03→23:14)
[2021-01-24 06:07] LABS: ALBUMIN 3.7 g/dL (3.5-5.0); ALKALINE PHOSPHATASE 59 U/L (38-126); BLOOD UREA NITROGEN 7 mg/dL (7-17); CHLORIDE 103 mmol/L (98-107); Calcium 8.9 mg/dL (8.4-10.2); Carbon Dioxide 30 mmol/L (22-30); Creatinine 1 0.63 mg/dL (0.52-1.04); EST GLOMERULAR FILTRATION RATE > 60.0 ML/MIN; Glucose 99 mg/dL (74-106); Potassium 3.2 mmol/L (3.5-5.1); SGOT/AST 29 U/L (14-36); SGPT/ALT 16 U/L (0-35); SODIUM 142 mmol/L (137-145); Total Protein 6.4 g/dL (6.3-8.2)
[2021-01-24] MEDS: Zofran 4 MG/2 ML VIAL IV PRN (06:08)
[2021-01-24] MEDS: Coreg 6.25 MG PO SCH ×2 (07:59→17:59)
[2021-01-24 08:46] LABS: Basophil 1 % (0.0-1.0); Eosinophil 3 % (0.00-3.0); Lymphocytes 17 % (24-44); Monocyte 7 % (0.0-12.0); Neutrophils 72 % (36.0-66.0); Platelet Estimate NORMAL (NORMAL); Total Cells Counted 100
[2021-01-24] MEDS: Ditropan XL 5 MG PO SCH ×2 (09:35→21:26)
[2021-01-24] MEDS: PATIENT OWN MEDICATION PO SCH ×2 (09:35→21:27)
[2021-01-24] MEDS: NORVASC 5 MG PO SCH (09:35)
[2021-01-24] MEDS: PROTONIX 40 MG IV IV SCH (09:36)
[2021-01-24] MEDS ORDERED: CEPACOL SORE THROAT LOZENGE PO PRN (10:29)
[2021-01-24] MEDS: PATIENT OWN MEDICATION IH SCH ×2 (10:45→11:07)
[2021-01-24] MEDS ORDERED: Klor Con 10 MEQ PO ONE (11:10)
--- NOTE | 2021-01-24 17:07 | PCM.NOTE ---
Date and Time: 01/24/21 170 Subjective Assessment: Patient has improved on IV Flagyl and IV Meropenem for treatment of colitis . She has had grilled cheese and potatoe "just snacking" Still with periumbilical tenderness. Objective Exam General Appearance: no apparent distress Neurologic Exam: alert, oriented x 3, cooperative Skin Exam: warm, dry, pale Respiratory Exam: normal breath sounds Cardiovascular Exam: regular rate/rhythm Gastrointestinal/Abdomen Exam: soft (diminished BS), tenderness (periumbilical no guarding), distention OBJECTIVE DATA Vital Signs: Vital Signs - 24 hr Temp Pulse Resp BP Pulse Ox 01/24/21 16:00 98.5 F 78 16 145/70 98 01/24/21 12:00 98.1 F 70 16 154/74 92 L 01/24/21 10:49 66 18 94 L 01/24/21 07:40 99.0 F 86 16 172/95 96 01/24/21 04:00 98.4 F 84 18 181/87 96 01/24/21 00:00 99.1 F 76 16 144/72 93 L 01/23/21 19:40 98.5 F 72 16 140/67 94 L Pain Assessment - Last Documented Pain Intensity 1 Pain Scale Used 0-10 Pain Scale Intake and Output: Intake & Output 01/22/21 01/23/21 01/24/21 01/25/21 11:59 11:59 11:59 11:59 Intake Total 3920 2769 2702 240 Output Total 750 1100 750 Balance 3170 1669 1952 240 Weight 77.1 kg Lab Results: Lab Results-Last 24 Hours 01/24/21 01/24/21 Range/Units 05:16 05:16 WBC 14.4 H (4.0-10.5) K/mm3 RBC 4.24 (4.1-5.4) M/mm3 Hgb 12.8 (12.0-16.0) gm/dl Hct 39.9 (35-47) % MCV 94.1 (78-100) fl MCH 30.2 (26-32) pg MCHC 32.1 (32-36) g/dl RDW 13.2 (11.5-14.0) % Plt Count 302 (150-450) K/mm3 MPV 9.8 (7.5-11.0) fl Segmented Neutrophils 72 H (36.0-66.0) % Lymphocytes (Manual) 17 L (24-44) % Monocytes (Manual) 7 (0.0-12.0) % Eosinophils (Manual) 3 (0.00-3.0) % Basophils (Manual) 1 (0.0-1.0) % Platelet Estimate NORMAL (NORMAL) RBC Morphology NORMAL Sodium 142 (137-145) mmol/L Potassium 3.2 L (3.5-5.1) mmol/L Chloride 103 (98-107) mmol/L Carbon Dioxide 30 (22-30) mmol/L Anion Gap 12.0 (5-15) MEQ/L BUN 7 (7-17) mg/dL Creatinine 0.63 (0.52-1.04) mg/dL Estimated GFR > 60.0 ML/MIN Glucose 99 (74-106) mg/dL Calcium 8.9 (8.4-10.2) mg/dL Total Bilirubin 0.80 (0.2-1.3) mg/dL AST 29 (14-36) U/L ALT 16 (0-35) U/L Alkaline Phosphatase 59 (38-126) U/L Serum Total Protein 6.4 (6.3-8.2) g/dL Albumin 3.7 (3.5-5.0) g/dL Multi-Disciplinary Progress Notes: Multi-Disciplinary Progress Notes 01/24/21 11:48 Case Management Note by Sujey Dee REVIEWED CHART- NO CHANGE IN DC PLANS AT THIS TIME Initialized on 01/24/21 11:48 - END OF NOTE Assessment/Plan (1) Colitis Current Visit: Yes Status: Acute Assessment & Plan: improving Code(s): K52.9 - NONINFECTIVE GASTROENTERITIS AND COLITIS, UNSPECIFIED (2) Leukocytosis Current Visit: Yes Status: Acute Qualifiers: Leukocytosis type: unspecified Qualified Code(s): D72.829 - Elevated white blood cell count, unspecified Assessment & Plan: WBC 22,000 on admission and is down to 14,000 today,continue IV antibiotic and advance diet. Home in AM if no set backs. Code(s): D72.829 - ELEVATED WHITE BLOOD CELL COUNT, UNSPECIFIED
[2021-01-24] MEDS: Sodium Chloride 0.9% 1000 ML 1,000 ML IV SCH (17:58)
[2021-01-24] MEDS: Zestril 10 MG PO SCH (21:26)
[2021-01-24] MEDS: ZOCOR 20MG PO SCH (21:26)
[2021-01-25] MEDS: TYLENOL 325 MG PO PRN (04:58)
[2021-01-25] MEDS: Merrem 1 GM 1 G in Sodium Chloride 100ML MINI-BAG PLUS 100 ML IV SCH (05:00)
[2021-01-25 05:33] LABS: Hematocrit 36.1 % (35-47); Hemoglobin 11.7 gm/dl (12.0-16.0); Mean Corpuscular Hemoglobin 30.2 pg (26-32); Mean Corpuscular Hgb Concent. 32.4 g/dl (32-36); Platelet Count 320 K/mm3 (150-450); Red Blood Count 3.88 M/mm3 (4.1-5.4); Red Cell Distribution Width 13.3 % (11.5-14.0); White Blood Count 13.4 K/mm3 (4.0-10.5)
[2021-01-25] MEDS: FLAGYL 500 MG IVPB 500 MG/100 ML BAG IV SCH (05:54)
[2021-01-25 06:14] LABS: ALBUMIN 3.4 g/dL (3.5-5.0); ALKALINE PHOSPHATASE 56 U/L (38-126); ANION GAP 9.5 MEQ/L (5-15); BLOOD UREA NITROGEN 6 mg/dL (7-17); CHLORIDE 104 mmol/L (98-107); Calcium 8.7 mg/dL (8.4-10.2); Carbon Dioxide 30 mmol/L (22-30); Creatinine 1 0.63 mg/dL (0.52-1.04); EST GLOMERULAR FILTRATION RATE > 60.0 ML/MIN; Glucose 100 mg/dL (74-106); SGOT/AST 35 U/L (14-36); SGPT/ALT 14 U/L (0-35); SODIUM 140 mmol/L (137-145); Total Protein 5.9 g/dL (6.3-8.2)
[2021-01-25] MEDS ORDERED: K-LYTE 25 MEQ PO ONE (06:30)
[2021-01-25 07:08] LABS: BAND 4 % (0.0-2.0); Eosinophil 8 % (0.00-3.0); Lymphocytes 16 % (24-44); Metamyelocyte 1 %; Monocyte 5 % (0.0-12.0); Neutrophils 66 % (36.0-66.0); Total Cells Counted 100
[2021-01-25 07:09] LABS: Absolute Neutrophil Ct (ANC) 9.39 (1.4-6.9); Platelet Estimate NORMAL (NORMAL)
[2021-01-25] MEDS: Coreg 6.25 MG PO SCH (09:02)
[2021-01-26] MEDS ORDERED: K-LYTE 25 MEQ PO SCH (10:00)
[2021-02-04 16:02] VITALS: BP 136/73; PULSE 72
[2021-02-11 07:22] VITALS: O2SAT 99
--- NOTE | 2021-02-21 08:31 | HP ---
CHIEF COMPLAINT: Abdominal pain and diarrhea. HISTORY OF PRESENT ILLNESS: The patient is a 66-year-old white female who began having abdominal pain at home after which she had diarrheal stools. EMS was summoned. The patient was taken to the emergency room for further evaluation and management. PAST MEDICAL HISTORY: Significant for previous stroke, myocardial infarction, asthma, colon polyps, anxiety and depression, frequent urinary tract infections. PAST SURGICAL HISTORY: Includes hysterectomy, section, left ankle, rotator cuff, carpal tunnel and some blockage in the right carotid artery. HOME MEDICATIONS: Amlodipine 5 mg a day, aspirin 81 mg a day, atorvastatin 20 mg a day, Wellbutrin 200 mg twice a day, Coreg 10 mg daily, Bentyl 20 mg t.i.d., Estradiol 42.5 mg daily, nitroglycerin PRN, oxybutynin 10 mg b.i.d., Anoro Ellipta, lisinopril 10 mg a day. ALLERGIES: IV DYE. NITROFURANTOIN. VICODIN. AMOXICILLIN. FENTANYL. DILAUDID. SULFA. PHYSICAL EXAMINATION: Reveals a well-nourished, well-developed 66-year-old white female who is in mild distress due to abdominal pain. VITAL SIGNS: The patient's vital signs on admission showed the temperature to be 97.8F, pulse 68, respiratory rate 18. Blood pressure elevated at 194/96. O2 saturation of 99%. HEENT: Normocephalic, atraumatic. Pupils equal round reactive to light. Extraocular movements intact. Oropharynx is somewhat dry. NECK: Supple without lymphadenopathy, thyromegaly or JVD. CHEST: Clear to auscultation. HEART: Regular rate and rhythm without significant murmurs, rubs or gallops heard. ABDOMEN: Diffusely tender with minimal guarding. No palpable masses were felt. EXTREMITIES: Without cyanosis, clubbing or edema. NEUROLOGIC: The patient is alert and oriented x3 with no focal deficits noted. LAB DATA AND TESTS: The emergency room laboratory evaluations showed her white count to be 26,400, hemoglobin 13.7, PLT count 316,000. Her electrolytes were essentially normal. The troponin was less than 0.012. UA showed specific gravity of 1.006 and was otherwise considered to be normal. Her differential count showed 80% neutrophils. Her sugar was noted to be 174 nonfasting, calcium was 10.4 slightly high, bilirubin 1.9. She had amylase of 239 which is slightly elevated. Lipase however was normal. CT without contrast showed mild thickening of the distal transverse colon, splenic flexure with nonspecific decreased colitis being diagnosed. The patient also had superimposed diverticulitis, diffuse fatty infiltration of liver, evidence of previous appendectomy, cholecystectomy and hysterectomy. ASSESSMENT: A patient with abdominal pain and diarrhea reported to the hospital with increase in white count. Cultures have been obtained. The patient was started on IV antibiotics and pain control and this far has done best with the morphine. Surgical consultation will be obtained to rule out the possibility of a surgical abdomen. She will receive IV fluids and close observation.
--- NOTE | 2021-03-06 20:39 | PCM.DS ---
Discharge Summary Date of Admission: 01/19/21 11:16 Date of Discharge: 01/25/2021 Admitting Physician: PIERCE FERRO Consults: Consults on Case 01/19/21 12:28 Consult Surgery ROUTINE Primary Care Provider: WADE CLEMENTS Allergies Allergies Iodinated Contrast Media Allergy (Severe, Verified 01/19/21 01:25) Anaphylactic Reaction nitrofurantoin [From Macrodantin] Allergy (Severe, Verified 01/19/21 01:25) Anaphylactic Reaction acetaminophen [From Vicodin] Allergy (Verified 01/19/21 01:25) Itching amoxicillin [From Augmentin] Allergy (Verified 01/19/21 01:25) Vomiting clavulanic acid [From Augmentin] Allergy (Verified 01/19/21:25) Vomiting fentanyl Allergy (Verified 01/19/21:25) Hives hydrocodone [From Vicodin] Allergy (Verified 01/19/21 01:25) Itching hydromorphone [From Dilaudid] Allergy (Verified 01/19/21:25) Hives Sulfa (Sulfonamide Antibiotics) Allergy (Verified 01/19/21 01:25) Hives sulfamethoxazole [From Septra] Allergy (Verified 01/19/21:25) Vomiting trimethoprim [From Septra] Allergy (Verified 01/19/21:25) Vomiting Hospital Summary - Hospital Course Hospital Course: Patient is a 66 yr old female patient of Dr Ferro who presentd to ER with sudden onset of generalized abdominal pain ,watery rust colored diarrhea and N/V. She was admitted to [facility] with Dg colitis of transverse and splenic flecture colon with superimposed diverticulits. WBC was 26,000. Patient responded to treatment with IV Flagyl and Levaquin , IV fluids and pain control. Stool cultures were negative . General Surgery ,Dr Gregory Rosa, consulted and voiced concern for ischemic colitis with her Hx CVA and [place]. N/V and abdominal pain improved. WBC gradually improved to 13,000 . Maries diet was tolerated and patient was discharged to follow up with her providers.WBC abd electrolytes to be monitored /labs drawn 3-5 days after discharge-see full discharge instructiona. - Vitals & Intake/Output Vital Signs: Vital Signs Temperature 98.6 F 01/25/21 08:00 Pulse Rate 72 01/25/21 08:00 Respiratory Rate 01/25/21 08:00 Blood Pressure 136/73 01/25/21 08:00 O2 Sat by Pulse Oximetry 99 02/11/21 07:21 - Lab Result Diagrams: 01/25/21 04:50 01/25/21 04:50 Micro Results-Entire Visit: Microbiology 01/23/21 10:50 Salmonella/Shigella Screen - Final Stool Stool Culture Result 1 - Final Campylobacter Culture - Final Campylobacter Result 1 - Final Escherichia coli Shiga Toxins EIA - Final Ova and Parasite Concentrate Exam - Final Ova and Parasite Result 1 - Final Giardia lamblia (PCR) - Final Cryptosporidium Antigen - Final - Procedures and Test Procedures and Tests throughout Hospitalization: Therapy Orders & Screens 01/21/21 07:00 Respiratory MDI DAILY Comment: Diagnosis: COLITIS Respiratory Therapy Assessment DAILY Comment: Diagnosis: COLITIS Discharge Exam Neurologic Exam: alert, oriented x 3, cooperative, normal mood/affect (anxious to go home.) Neck Exam: normal inspection Respiratory Exam: normal breath sounds Cardiovascular Exam: regular rate/rhythm Gastrointestinal/Abdomen Exam: soft, normal bowel sounds, tenderness (minimal periumbilical,no guarding) Back Exam: other (no CVA tenderness) Extremity Exam: other (no edema) Skin Exam: normal color, warm, dry Final Diagnosis/Problem List - Final Discharge Diagnosis/Problem (1) Colitis Status: Acute Assessment & Plan: resolving on tx with IV Flagyl and IV Levaquin Code(s): K52.9 - NONINFECTIVE GASTROENTERITIS AND COLITIS, UNSPECIFIED (2) Leukocytosis Status: Resolved Assessment & Plan: will repeat labs and follow up with PCP in 5-7 days or sooner if any set backs. Code(s): D72.829 - ELEVATED WHITE BLOOD CELL COUNT, UNSPECIFIED (3) CAD (coronary artery disease) Status: Chronic Assessment & Plan: stable,troponin not elevated Code(s): I25.10 - ATHSCL HEART DISEASE OF [place] CORONARY ARTERY W/O ANG PCTRS (4) Hx of pancreatitis Status: Resolved Assessment & Plan: Hx post cholecystectomy pancreatitis and ERCP - mild elevation pancreatic enz. Will foolow with GI. Code(s): Z87.19 - PERSONAL HISTORY OF OTHER DISEASES OF THE DIGESTIVE SYSTEM - Discharge Disposition: Home, Self-Care Condition: Stable Prescriptions: New Potassium Chloride [Klor-Con 10] 10 meq PO DAILY #30 tab Cefuroxime Axetil 500 mg [Ceftin 500 mg] 500 mg PO BID #10 tablet Continue Amlodipine Besylate 5 mg [Norvasc 5 mg] 5 mg PO DAILY Aspirin 81 mg PO HS Atorvastatin Calcium [Lipitor] 20 mg PO HS buPROPion HCL [Wellbutrin Sr] 200 mg PO BID Dicyclomine HCl 20 mg [Bentyl 20 mg] 20 mg PO TID PRN PRN PRN Reason: IBS Estradiol [Estrace] 42.5 gm VG DAILY lisinopriL [Lisinopril] 10 mg PO HS Nitroglycerin 0.4 mg SL Q5MIN PRN MR X 3 PRN PRN Reason: Chest Pain Oxybutynin Chloride [Oxybutynin Chloride ER] 10 mg PO BID Umeclidinium Brm/Vilanterol Tr [Anoro Ellipta 62.5-25 Mcg INH] 1 each IH LUNCH Carvedilol 6.25 mg [Coreg 6.25 MG] 6.25 mg PO BID Outpatient Orders: CBC W DIFF Time Frame: 02/17/21, Facility: [facility]. Hosp, Location: LABORATORY CMP Time Frame: 02/17/21, Facility: [facility]. Hosp, Location: LABORATORY Instructions: Colitis (DC) Additional Instructions: DO BLOOD WORK DAY BEFORE APPT WITH DR FERRO Follow up with: PIERCE FERRO [ACTIVE STAFF] - 02/18/21 9:15 am
== END 2021-01-25 09:48 | disposition home or self-care (01) | DRG 392 ==
LOC: ED 00:26 → MED SURG 06:16 → OBSVTOIN 11:16
PROVIDERS: ADMIT Family Medicine; ATTEND Family Medicine
DX: K52.9 Noninfective gastroenteritis and colitis, unspecified (principal); D72.829 Elevated white blood cell count, unspecified; R11.2 Nausea with vomiting, unspecified; I10 Essential (primary) hypertension; I25.2 Old myocardial infarction; I25.10 Atherosclerotic heart disease of native coronary artery without angina pectoris; R53.1 Weakness; Z79.899 Other long term (current) drug therapy; Z20.828 Contact with and (suspected) exposure to other viral communicable diseases; Z87.19 Personal history of other diseases of the digestive system
CPT/HCPCS: 36000; 36415; 74177; 80053; 81001; 82150; 83605; 83690; 84132; 84145; 84484; 85025; 85027; 87045; 87046; 87328; 87329; 87493; 93005; 94640; 94760; 94762; 96374; 96375; 99285; U0003; J1170; J1885; J1956; J2270; J2405; J3480; A9270-GY

== ENCOUNTER 2021-06-14 13:50 | Emergency (ER) | payer MEDICARE, OTHER ==
[2021-06-14] MEDS ORDERED: Sodium Chloride 0.9% 1000 ML 1,000 ML ONE (14:11)
[2021-06-14] MEDS ORDERED: Sodium Chloride 0.9% 1000 ML 1,000 ML IV STA (14:11)
[2021-06-14] MEDS ORDERED: Zofran 4 MG/2 ML VIAL IV ONE (14:14)
[2021-06-14] MEDS ORDERED: BABY ASPIRIN 81 MG CHEW PO ONE (14:14)
--- NOTE | 2021-06-14 14:45 | XRAY ---
Indication: Vomiting, diarrhea, and left arm pain. Comparison: September 26, 2008. PA/lateral chest hyperinflated and clear. Heart not enlarged. Bony thorax intact with mild osteopenia, degenerative changes, and minimal scoliosis. Impression: Continued nonacute chest with chronic features.
--- NOTE | 2021-06-14 14:59 | XRAY ---
Indication: Chest/abdomen pain. Vomiting and diarrhea. Multiple contiguous axial images obtained through the abdomen and pelvis without contrast. Comparison: January 19, 2021. Lung bases now demonstrates mild scattered fibrosis/scarring. No infiltrate or effusion. Heart not enlarged. Noncontrasted stomach and bowel loops nonobstructed. Minimal sigmoid diverticulosis without diverticulitis. Again appendectomy, cholecystectomy, and hysterectomy reported. Again minimal pneumobilia. No free fluid/air. Remaining liver, pancreas, spleen, adrenal glands, kidneys, ureters, and bladder are unremarkable for noncontrast exam. Minimal aortic calcifications without AAA. Osseous structures intact again with minimal/mild multilevel degenerative spondylosis, minimal grade 1 L4 spondylolisthesis, and L5-S1 laminectomy. No ventral or inguinal hernias. Impression: 1. Sigmoid diverticulosis and chronic bony findings. 2. Remaining CT abdomen/pelvis without contrast exam is negative.
[2021-06-14] MEDS ORDERED: Zofran 4 MG/2 ML VIAL ONE (15:08)
[2021-06-14 15:22] LABS: INFLUENZA A NEGATIVE (NEGATIVE); INFLUENZA B NEGATIVE (NEGATIVE)
--- NOTE | 2021-06-14 15:23 | ERPHSYRPT ---
- History of Present Illness Time Seen by Provider: 06/14/21 13:54 Source: patient Exam Limitations: no limitations Patient Subjective Stated Complaint: Pt presented alert and oriented x 3, skin pwd pt ambulates with a slow gait, able to speak in clear full sentences. Pt r esting comfortably on the bed. Triage Nursing Assessment: Pt states "I had diarrhea and vomiting last night, I came in for a liter of saline and labs at infusion cener and my white count came back [address] Mckinney told me to come down here." Physician History: Patient is here with nausea and vomiting. Patient also has an elevated white blood cell count. Patient states that she started feeling ill last night. Had some chest pain around midnight. Progressed to have nausea and vomiting. Patient states this is been off and on for about 1 month. She has no other falls or trauma. Patient states that she called her PCP, Dr. Pascual. She was sent to the infusion center for a liter of fluid and basic labs. She had a white cell count of 23,000. Therefore was sent over to the emergency department. She has no fever or chills here. She does have a history of coronary artery disease. No current chest pain or shortness of breath. This has completely resolved with no further episodes since last night. Allergies/Adverse Reactions: Iodinated Contrast Media Allergy (Severe, Verified 06/14/21 11:47) Anaphylactic Reaction nitrofurantoin [From Macrodantin] Allergy (Severe, Verified 06/14/21 11:47) Anaphylactic Reaction acetaminophen [From Vicodin] Allergy (Verified 06/14/21 11:47) Itching amoxicillin [From Augmentin] Allergy (Verified 06/14/21 11:47) Vomiting clavulanic acid [From Augmentin] Allergy (Verified 06/14/21 11:47) Vomiting fentanyl Allergy (Verified 06/14/21 11:47) Hives hydrocodone [From Vicodin] Allergy (Verified 06/14/21 11:47) Itching hydromorphone [From Dilaudid] Allergy (Verified 06/14/21 11:47) Hives Sulfa (Sulfonamide Antibiotics) Allergy (Verified 06/14/21 11:47) Hives sulfamethoxazole [From Septra] Allergy (Verified 06/14/21 11:47) Vomiting trimethoprim [From Septra] Allergy (Verified 06/14/21 11:47) Vomiting Home Medications: Amlodipine Besylate 5 mg [Norvasc 5 mg] 5 mg PO DAILY 01/19/21 [History] Aspirin 81 mg PO HS 01/19/21 [History] Atorvastatin Calcium [Lipitor] 20 mg PO HS 01/19/21 [History] Carvedilol 6.25 mg [Coreg 6.25 MG] 6.25 mg PO BID 01/19/21 [History] Dicyclomine HCl 20 mg [Bentyl 20 mg] 20 mg PO TID PRN PRN 01/19/21 [History] Nitroglycerin 0.4 mg SL Q5MIN PRN MR X 3 PRN 01/19/21 [History] Oxybutynin Chloride [Oxybutynin Chloride ER] 10 mg PO BID 01/19/21 [History] Umeclidinium Brm/Vilanterol Tr [Anoro Ellipta 62.5-25 Mcg INH] 1 each IH LUNCH 01/19/21 [History] buPROPion HCL [Wellbutrin Sr] 200 mg PO BID 01/19/21 [History] lisinopriL [Lisinopril] 10 mg PO HS 01/19/21 [History] Alendronate Sodium 70 mg [Fosamax 70 MG] 70 mg PO DAILY 06/14/21 [History] Hx Tetanus, Diphtheria Vaccination/Date Given: No Hx Influenza Vaccination/Date Given: No Hx Pneumococcal Vaccination/Date Given: No Immunizations Up to Date: Yes Travel Risk - International Travel Have you traveled outside of the country in past 3 weeks: No - Coronavirus Screening Are you exhibiting any of the following symptoms?: No Close contact with a COVID-19 positive Pt in past 14-21 Days: No - Vaccine Status Have you recieved a Covid-19 vaccination: No - Review of Systems Constitutional: No Fever, No Chills Eyes: No Symptoms Ears, Nose, & Throat: No Symptoms Respiratory: No Cough, No Dyspnea Cardiac: No Chest Pain, No Edema, No Syncope Abdominal/Gastrointestinal: Nausea, Vomiting, No Abdominal Pain, No Diarrhea Genitourinary Symptoms: No Dysuria Musculoskeletal: No Back Pain, No Neck Pain Skin: No Rash Neurological: No Dizziness, No Focal Weakness, No Sensory Changes Psychological: No Symptoms Endocrine: No Symptoms All Other Systems: Reviewed and Negative - Past Medical History Pertinent Past Medical History: Yes Neurological History: Stroke ENT History: No Pertinent History Cardiac History: Hypertension, Myocardial Infarction ([place]), Other Respiratory History: Asthma Endocrine Medical History: No Pertinent History Musculoskeletal History: No Pertinent History GI Medical History: Hemorrhoids, Polyps History: Other Psycho-Social History: Anxiety, Depression Female Reproductive Disorders: No Pertinent History Other Medical History: nodule on lung and adrenal gland, frequent UTI, mitral valve prolapse - Past Surgical History Past Surgical History: Yes Neuro Surgical History: No Pertinent History Cardiac: Cardiac Catheterization Respiratory: No Pertinent History Gastrointestinal: Cholecystectomy Genitourinary: No Pertinent History Musculoskeletal: Orthopedic Surgery Female Surgical History: Hysterectomy, Section, Tubal Ligation Other Surgical History: left ankle, rotator cuff, carpal tunnel, blockage to rt corotid - Social History Smoking Status: Never smoker Exposure to second hand smoke: Yes Drug Use: none Patient Lives Alone: No - Nursing Vital Signs Nursing Vital Signs: Initial Vital Signs Temperature 98.0 F 06/14/21 14:00 Pulse Rate 85 06/14/21 14:00 Respiratory Rate 20 06/14/21 14:00 Blood Pressure 138/64 06/14/21 14:00 O2 Sat by Pulse Oximetry 97 06/14/21 14:00 Pain Scale Pain Intensity 6 - Physical Exam General Appearance: no apparent distress, alert Eye Exam: PERRL/EOMI, eyes nml inspection Ears, Nose, Throat Exam: normal ENT inspection, TMs normal, pharynx normal, moist mucous membranes Neck Exam: normal inspection, non-tender, supple, full range of motion Respiratory Exam: normal breath sounds, lungs clear, No respiratory distress Cardiovascular Exam: regular rate/rhythm, normal heart sounds, normal peripheral pulses Gastrointestinal/Abdomen Exam: soft, normal bowel sounds, No tenderness, No mass Back Exam: normal inspection, normal range of motion, No CVA tenderness, No vertebral tenderness Extremity Exam: normal inspection, normal range of motion, pelvis stable Neurologic Exam: alert, oriented x 3, cooperative, normal mood/affect, nml cerebellar function, nml station & gait, sensation nml, No motor deficits Skin Exam: normal color, warm, dry, No rash Lymphatic Exam: No adenopathy SpO2: 97 - Course Nursing assessment & vital signs reviewed: Yes EKG Interpreted by Me: Sinus Rhythm Ordered Tests: Active Orders 24 hr Category Date Time Status EKG-ER Only STAT Care 06/14/21 14:14 Active IV Insertion STAT Care 06/14/21 14:11 Active ABDOMEN AND PELVIS W/0 CONTRAS [CT] Stat Exams 06/14/21 14:22 Completed CHEST 2 VIEWS (PA AND LAT) Stat Exams 06/14/21 14:14 Completed CULTURE,URINE Stat Lab 06/14/21 16:15 Received INFLUENZA A+B LEESA Stat Lab 06/14/21 14:55 Completed LIPASE Stat Lab 06/14/21 14:55 Completed TROPONIN Q3H Lab 06/14/21 14:55 Completed TROPONIN Q3H Lab 06/14/21 17:40 Received TROPONIN Q3H Lab 06/14/21 20:15 Ordered TROPONIN Q3H Lab 06/14/21 23:15 Ordered TROPONIN Q3H Lab 06/15/21 02:15 Ordered Medication Summary Discontinued Medications Generic Name Dose Route Start Last Admin Trade Name Freq PRN Reason Stop Dose Admin Aspirin 324 mg 06/14/21 14:14 06/14/21 15:04 Aspirin 81 Mg Tab.Chew PO 06/14/21 14:15 324 mg STAT ONE Administration Sodium Chloride 1,000 mls @ 999 mls/hr 06/14/21 14:11 06/14/21 15:45 Sodium Chloride 0.9% 1000 Ml IV 06/14/21 15:11 Infused .Q1H1M STA Infusion Sodium Chloride Confirm 06/14/21 14:11 Sodium Chloride 0.9% 1000 Ml Administered 06/14/21 14:12 Dose 1,000 mls @ ud .ROUTE .STK-MED ONE Ondansetron HCl 4 mg 06/14/21 14:14 06/14/21 15:09 Ondansetron Hcl 4 Mg/2 Ml Vial IV 06/14/21 14:15 4 mg STAT ONE Administration Ondansetron HCl Confirm 06/14/21 15:08 Ondansetron Hcl 4 Mg/2 Ml Vial Administered 06/14/21 15:09 Dose 4 mg .ROUTE .STK-MED ONE Lab/Rad Data: Laboratory Results 06/14/21 06/14/21 06/14/21 Range/Units 16:15 14:55 14:55 Troponin I (0.000-0.034) ng/mL Lipase 29 (23-300) U/L Urinalys Dipstick Clnc MAIN LAB Urine Color YELLOW (YELLOW) Urine Appearance CLEAR (CLEAR) Urine pH 6.0 (5-6) Ur Specific [place] 1.015 (1.005-1.025) POC Urine Protein Conf NEGATIVE (Negative) Urine Ketones NEGATIVE (NEGATIVE) Urine Nitrite POSITIVE (NEGATIVE) Urine Bilirubin NEGATIVE (NEGATIVE) Urine Urobilinogen 0.2 (0-1) mg/dL Urine Leukocytes SMALL (NEGATIVE) Urine WBC (Auto) 11-15 (0-5) /HPF Urine RBC (Auto) 0-2 (0-2) /HPF U Epithel Cells (Auto) RARE (FEW) /HPF Urine Bacteria (Auto) FEW (NEGATIVE) /HPF Urine RBC NEGATIVE (0-5) Usman/ul Urine Mucus (Auto) SLIGHT (NEGATIVE) /HPF Ur Culture Indicated? YES Urine Glucose NEGATIVE (NEGATIVE) mg/dL Influenza Type A Ag NEGATIVE (NEGATIVE) Influenza Type B Ag NEGATIVE (NEGATIVE) 06/14/21 Range/Units 14:55 Troponin I < 0.012 (0.000-0.034) ng/mL Lipase (23-300) U/L Urinalys Dipstick Clnc Urine Color (YELLOW) Urine Appearance (CLEAR) Urine pH (5-6) Ur Specific [place] (1.005-1.025) POC Urine Protein Conf (Negative) Urine Ketones (NEGATIVE) Urine Nitrite (NEGATIVE) Urine Bilirubin (NEGATIVE) Urine Urobilinogen (0-1) mg/dL Urine Leukocytes (NEGATIVE) Urine WBC (Auto) (0-5) /HPF Urine RBC (Auto) (0-2) /HPF U Epithel Cells (Auto) (FEW) /HPF Urine Bacteria (Auto) (NEGATIVE) /HPF Urine RBC (0-5) Usman/ul Urine Mucus (Auto) (NEGATIVE) /HPF Ur Culture Indicated? Urine Glucose (NEGATIVE) mg/dL Influenza Type A Ag (NEGATIVE) Influenza Type B Ag (NEGATIVE) - Progress Progress: improved Progress Note: 06/14/21 15:23 differential diagnosis includes kidney stone, compression fracture, infection, UTI, triple AAA, - basic labs including: CBC, lipase, CMP, UA, trop, EKG - insert IV for fluids, pain meds, nausea control - consider imaging: CT ab/pelvis, CXR 06/14/21 17:56 Work-up largely unremarkable. Patient does have some diverticulosis on CT scan. Chest x-ray clear. Patient may have a slight UTI on UA. Otherwise labs unremarkable. Cardiac markers normal. EKG negative. We did review the CBC, CMP from earlier today. She had a total of 2 L of fluid. She was able to tolerate p.o. Therefore we will discharge her home on Bactrim and Zofran. Should anything change she may return here for admission or further evaluation. Her is at bedside. He feels comfortable with discharge home. Plan of care was discussed with patient and all questions answered. The patient is agreeable to be discharged home and both verbal and printed discharge instructions were provided.The patient agreed to seek outpatient follow up as discussed. The patient was given strict instructions to return to the emergency department for worsening symptoms or any other emergent concerns. The patient verbalized understanding. Counseled pt/family regarding: lab results, diagnosis, need for follow-up, rad results - Departure Departure Disposition: Home Clinical Impression: UTI (urinary tract infection), Nausea and vomiting Condition: Stable Critical Care Time: No Referrals: WADE CLEMENTS NP [Primary Care Provider] - Follow up/PCP as directed Instructions: Urinary Tract Infection, Adult (DC) Prescriptions: Ondansetron ODT 4 MG [Zofran Odt 4 mg] 4 mg PO Q6H PRN PRN #10 tablet PRN Reason: Vomiting Smz/Tmp Ds Tablet [Bactrim Ds Tablet] 1 udtab PO BID #14 tablet
[2021-06-14 17:08] LABS: Bacteria FEW /HPF (NEGATIVE); Epithelial Cells RARE /HPF (FEW); Mucus SLIGHT /HPF (NEGATIVE); RBC 0-2 /HPF (0-2)
[2021-06-14 17:25] LABS: Appearance CLEAR (CLEAR); Bilirubin NEGATIVE (NEGATIVE); Glucose NEGATIVE (NEGATIVE); Ketones NEGATIVE (NEGATIVE); Specific Gravity 1.015 (1.005-1.025)
[2021-06-14 17:26] LABS: Dipstick done @ ? MAIN LAB; Nitrite POSITIVE (NEGATIVE); Protein,Urine Dip NEGATIVE (Negative); RBC NEGATIVE Ery/ul (0-5); Urine Cultured Indicated? YES; Urobilinogen 0.2 mg/dL (0-1)
[2021-06-14 18:10] VITALS: BP 138/71; PULSE 73; O2SAT 98
== END 2021-06-14 18:48 | disposition home or self-care (01) ==
LOC: ED 13:50
DX: N39.0 Urinary tract infection, site not specified (principal); R11.2 Nausea with vomiting, unspecified; I10 Essential (primary) hypertension; Z79.899 Other long term (current) drug therapy
CPT/HCPCS: 36000; 36415; 71046; 74176; 81015; 83690; 84484; 87077; 87086; 87186; 87400; 93005; 96360; 96374; 99284; J2405; A9270-GY

== ENCOUNTER 2022-01-15 00:53 | Observation (INO) | payer MEDICARE ==
[2022-01-15] MEDS ORDERED: Zofran 4 MG/2 ML VIAL IV ONE (01:54)
[2022-01-15] MEDS ORDERED: Sodium Chloride 0.9% 1000 ML 1,000 ML IV STA (01:54)
[2022-01-15] MEDS ORDERED: Zofran 4 MG/2 ML VIAL ONE (02:00)
[2022-01-15] MEDS ORDERED: Sodium Chloride 0.9% 1000 ML 1,000 ML ONE (02:00)
[2022-01-15 02:19] LABS: Basophil (Absolute #) 0.08 x10^3/uL (0-0.4); Eosinophil % 0.7 % (0.00-5.0); Eosinophil (Absolute #) 0.15 x10^3/uL (0-0.5); Hematocrit 46.5 % (35-47); Hemoglobin 15.1 g/dL (12.0-16.0); Lymphocyte (Absolute #) 1.59 x10^3/uL (1.0-4.6); Lymphocytes % 7.8 % (24.0-44.0); Mean Cell Volume 93.4 fL (78-100); Mean Corpuscular Hemoglobin 30.3 pg (26-32); Mean Corpuscular Hgb Concent. 32.5 g/dL (32-36); Mean Platelet Volume 9.8 fL (7.5-11.0); Monocytes % 5.9 % (0.0-12.0); Neutrophil % 84.4 % (36.0-66.0); Platelet Count 307 x10^3/uL (150-450); Red Blood Count 4.98 x10^6/uL (4.1-5.4); Red Cell Distribution Width 12.9 % (11.5-14.0); White Blood Count 20.3 x10^3/uL (4.0-10.5)
[2022-01-15 02:34] LABS: ALBUMIN 5.1 g/dL (3.5-5.0); ALKALINE PHOSPHATASE 165 U/L (38-126); BLOOD UREA NITROGEN 19 mg/dL (7-17); CHLORIDE 103 mmol/L (98-107); Calcium 10.7 mg/dL (8.4-10.2); Carbon Dioxide 26 mmol/L (22-30); EST GLOMERULAR FILTRATION RATE > 60.0 ML/MIN; Glucose 159 mg/dL (74-106); LIPASE 71 U/L (23-300); Potassium 3.6 mmol/L (3.5-5.1); SGOT/AST 29 U/L (14-36); SGPT/ALT 23 U/L (0-35); SODIUM 141 mmol/L (137-145); Total Protein 8.3 g/dL (6.3-8.2)
--- NOTE | 2022-01-15 03:14 | ERPHSYRPT ---
- History of Present Illness Time Seen by Provider: 01/15/22 03:14 Exam Limitations: no limitations Patient Subjective Stated Complaint: pt states she has not been feeling well for last 4 days and started having diarrhea this evening. Triage Nursing Assessment: pt alert and oriented, answers questions approp. [facility] respirations nonlabored. upon arrival to er, pt had a large solid stool under her with small amt of liquid stool. during exam, pt got up to bathroom and had another liquid stool. Physician History: Patient is 66-year-old female presents to our ED via EMS for evaluation of abdominal pain and diarrhea. Patient also experiencing vomiting however EMS administered Zofran which helped her symptoms. Patient has not vomited in our ED. Patient states she has not been feeling well for the past 4 days. Patient developed diarrhea and cramping sensation this morning. No trauma. No fever. Upon arrival to our ED patient had several bowel movements. She had both solid stool as well as watery stool. Stool was nonbloody. Patient complains of periumbilical abdominal pain. Patient had similar symptoms last year. Patient states she was admitted at that time. No fever. No trauma. Symptoms are mild to moderate in intensity. No specific worsening or improving factors. Patient voices no other complaints or concerns at this time. Portions of this note were created with voice recognition technology. There may be grammatical, spelling, punctuation or sound alike errors Timing/Duration: today Activities at Onset: none Quality: aching Abdominal Pain Onset Location: periumbilical Pain Radiation: no radiation Severity of Pain-Max: moderate Severity of Pain-Current: mild Modifying Factors: Improves With: nothing Associated Symptoms: diarrhea, vomiting, No fever/chills Previous symptoms: same symptoms as today Allergies/Adverse Reactions: Iodinated Contrast Media Allergy (Severe, Verified 01/15/22 01:40) Anaphylactic Reaction nitrofurantoin [From Macrodantin] Allergy (Severe, Verified 01/15/22 01:40) Anaphylactic Reaction acetaminophen [From Vicodin] Allergy (Unknown, Verified 01/15/22 05:07) Itching amoxicillin [From Augmentin] Allergy (Unknown, Verified 01/15/22 05:07) Vomiting clavulanic acid [From Augmentin] Allergy (Unknown, Verified 01/15/22 05:07) Vomiting fentanyl Allergy (Unknown, Verified 01/15/22 05:07) Hives hydrocodone [From Vicodin] Allergy (Unknown, Verified 01/15/22 05:07) Itching hydromorphone [From Dilaudid] Allergy (Unknown, Verified 01/15/22 05:07) Hives Sulfa (Sulfonamide Antibiotics) Allergy (Unknown, Verified 01/15/22 05:07) Hives sulfamethoxazole [From Septra] Allergy (Unknown, Verified 01/15/22 05:07) Vomiting trimethoprim [From Septra] Allergy (Verified 01/15/22 01:40) Vomiting Home Medications: Amlodipine Besylate 5 mg [Norvasc 5 mg] 5 mg PO DAILY 01/19/21 [History] Aspirin 81 mg PO HS 01/19/21 [History] Atorvastatin Calcium [Lipitor] 20 mg PO HS 01/19/21 [History] Carvedilol [Coreg ] 6.25 mg PO BID 01/19/21 [History] Dicyclomine HCl 20 mg [Bentyl 20 mg] 20 mg PO TID PRN PRN 01/19/21 [History] Nitroglycerin 0.4 mg SL Q5MIN PRN MR X 3 PRN 01/19/21 [History] Oxybutynin Chloride [Oxybutynin Chloride ER] 10 mg PO BID 01/19/21 [History] Umeclidinium Brm/Vilanterol Tr [Anoro Ellipta 62.5-25 Mcg INH] 1 each IH LUNCH 01/19/21 [History] buPROPion HCL [Wellbutrin Sr] 200 mg PO BID 01/19/21 [History] lisinopriL [Lisinopril] 10 mg PO HS 01/19/21 [History] Alendronate Sodium 70 mg [Fosamax 70 MG] 70 mg PO DAILY 06/14/21 [History] Hx Tetanus, Diphtheria Vaccination/Date Given: No Hx Influenza Vaccination/Date Given: No Hx Pneumococcal Vaccination/Date Given: No Immunizations Up to Date: No Travel Risk - International Travel Have you traveled outside of the country in past 3 weeks: No - Coronavirus Screening Are you exhibiting any of the following symptoms?: No Close contact with a COVID-19 positive Pt in past 14-21 Days: No - Vaccine Status Have you recieved a Covid-19 vaccination: No - Review of Systems Constitutional: No Symptoms, No Fever, No Chills Eyes: No Symptoms Ears, Nose, & Throat: No Symptoms Respiratory: No Symptoms, No Cough, No Dyspnea Cardiac: No Symptoms, No Chest Pain, No Edema, No Syncope Abdominal/Gastrointestinal: No Symptoms, No Abdominal Pain, No Nausea, No Vomiting, No Diarrhea Genitourinary Symptoms: No Symptoms, No Dysuria Musculoskeletal: No Symptoms, No Back Pain, No Neck Pain Skin: No Symptoms, No Rash Neurological: No Symptoms, No Dizziness, No Focal Weakness, No Sensory Changes Psychological: No Symptoms Endocrine: No Symptoms Hematologic/Lymphatic: No Symptoms Immunological/Allergic: No Symptoms All Other Systems: Reviewed and Negative - Past Medical History Pertinent Past Medical History: Yes Neurological History: Stroke ENT History: No Pertinent History Cardiac History: Hypertension, Myocardial Infarction (MD), Other Respiratory History: Asthma Endocrine Medical History: No Pertinent History Musculoskeletal History: No Pertinent History GI Medical History: Hemorrhoids, Polyps History: Other Psycho-Social History: Anxiety, Depression Female Reproductive Disorders: No Pertinent History Other Medical History: nodule on lung and adrenal gland, frequent UTI, mitral valve prolapse - Past Surgical History Past Surgical History: Yes Neuro Surgical History: No Pertinent History Cardiac: Cardiac Catheterization Respiratory: No Pertinent History Gastrointestinal: Cholecystectomy Genitourinary: No Pertinent History Musculoskeletal: Orthopedic Surgery Female Surgical History: Hysterectomy, Section, Tubal Ligation Other Surgical History: left ankle, rotator cuff, carpal tunnel, blockage to rt corotid - Social History Smoking Status: Never smoker Exposure to second hand smoke: Yes Drug Use: none Patient Lives Alone: No - Nursing Vital Signs Nursing Vital Signs: Initial Vital Signs Temperature 97.9 F 01/15/22 01:19 Pulse Rate 84 01/15/22 01:19 Respiratory Rate 18 01/15/22 01:19 Blood Pressure 164/98 01/15/22 01:19 O2 Sat by Pulse Oximetry 98 01/15/22 01:19 Pain Scale Pain Intensity 4 - Physical Exam General Appearance: no apparent distress, alert Eye Exam: PERRL/EOMI, eyes nml inspection Ears, Nose, Throat Exam: normal ENT inspection, pharynx normal, moist mucous membranes Neck Exam: normal inspection, non-tender, supple, full range of motion Respiratory Exam: normal breath sounds, lungs clear, No respiratory distress Cardiovascular Exam: regular rate/rhythm, normal heart sounds, normal peripheral pulses Gastrointestinal/Abdomen Exam: soft, No tenderness, No mass Back Exam: normal inspection, normal range of motion, No CVA tenderness, No vertebral tenderness Extremity Exam: normal inspection, normal range of motion, pelvis stable Neurologic Exam: alert, oriented x 3, cooperative, normal mood/affect, nml cerebellar function, sensation nml, No motor deficits Skin Exam: normal color, warm, dry Lymphatic Exam: No adenopathy SpO2 Interpretation: normal SpO2: 97 O2 Delivery: Room Air - Course Nursing assessment & vital signs reviewed: Yes - CT Exams Abdomen/Pelvis CT Interpretation: Tele-radiologist Report (Diffuse colonic wall prominence suggesting colitis. Negative for bowel perforation or obstruction) Ordered Tests: Active Orders 24 hr Category Date Time Status IV Insertion STAT Care 01/15/22 01:54 Active ABDOMEN AND PELVIS W/0 CONTRAS [CT] Stat Exams 01/15/22 01:55 Taken CBC W DIFF Stat Lab 01/15/22 02:16 Completed CMP Stat Lab 01/15/22 02:16 Completed LIPASE Stat Lab 01/15/22 02:16 Completed TROPONIN Q4H Lab 01/15/22 02:16 Completed TROPONIN Q4H Lab 01/15/22 06:00 Ordered TROPONIN Q4H Lab 01/15/22 10:00 Ordered UA W/RFX CULTURE Stat Lab 01/15/22 04:15 Completed Transfer Order Routine Transfer 01/15/22 Ordered Medication Summary Generic Name Dose Route Start Last Admin Trade Name Freq PRN Reason Stop Dose Admin Levofloxacin/Dextrose 500 mg in 100 mls @ 100 mls/hr 01/15/22 05:06 Levofloxacin 500mg/100ml D5w IV 01/15/22 06:05 STAT STA Metronidazole 500 mg in 100 mls @ 200 mls/hr 01/15/22 05:07 Flagyl 500 Mg Ivpb IV 01/15/22 05:36 STAT STA Discontinued Medications Generic Name Dose Route Start Last Admin Trade Name Freq PRN Reason Stop Dose Admin Fentanyl Citrate 25 mcg 01/15/22 03:47 01/15/22 03:54 Fentanyl Citrate 100 Mcg/2 Ml* Vial IV 01/15/22 03:48 Not Given STAT ONE Sodium Chloride 1,000 mls @ 999 mls/hr 01/15/22 01:54 01/15/22 02:04 Sodium Chloride 0.9% 1000 Ml IV 01/15/22 02:54 999 mls/hr .Q1H1M STA Administration Sodium Chloride Confirm 01/15/22 02:00 Sodium Chloride 0.9% 1000 Ml Administered 01/15/22 02:01 Dose 1,000 mls @ ud .ROUTE .STK-MED ONE Metoclopramide HCl 10 mg 01/15/22 03:46 01/15/22 03:58 Metoclopramide Hcl 10 Mg/2 Ml Vial IV 01/15/22 03:47 10 mg STAT ONE Administration Metoclopramide HCl Confirm 01/15/22 03:56 Metoclopramide Hcl 10 Mg/2 Ml Vial Administered 01/15/22 03:57 Dose 10 mg .ROUTE .STK-MED ONE Morphine Sulfate 2 mg 01/15/22 03:51 01/15/22 03:58 Morphine Sulfate 2 Mg/Ml Inj IV 01/15/22 03:52 2 mg STAT ONE Administration Morphine Sulfate Confirm 01/15/22 03:56 Morphine Sulfate 2 Mg/Ml Inj Administered 01/15/22 03:57 Dose 2 mg .ROUTE .STK-MED ONE Ondansetron HCl 4 mg 01/15/22 01:54 01/15/22 02:01 Ondansetron Hcl 4 Mg/2 Ml Vial IV 01/15/22 01:55 4 mg STAT ONE Administration Ondansetron HCl Confirm 01/15/22 02:00 Ondansetron Hcl 4 Mg/2 Ml Vial Administered 01/15/22 02:01 Dose 4 mg .ROUTE .STK-MED ONE Lab/Rad Data: Laboratory Result Diagrams 01/15/22 02:16 01/15/22 02:16 Laboratory Results 01/15/22 01/15/22 01/15/22 Range/Units 04:15 03:08 02:16 WBC (4.0-10.5) x10^3/uL RBC (4.1-5.4) x10^6/uL Hgb (12.0-16.0) g/dL Hct (35-47) % MCV (78-100) fL MCH (26-32) pg MCHC (32-36) g/dL RDW (11.5-14.0) % Plt Count (150-450) x10^3/uL MPV (7.5-11.0) fL Gran % (36.0-66.0) % Immature Gran % (Auto) (0.00-0.4) % Nucleat RBC Rel Count (0.00-0.1) % Eos # (Auto) (0-0.5) x10^3/uL Immature Gran # (Auto) (0.00-0.03) x10^3u/L Absolute Lymphs (auto) (1.0-4.6) x10^3/uL Absolute Monos (auto) (0.0-1.3) x10^3/uL Absolute Nucleated RBC (0.00-0.01) x10^3u/L Lymphocytes % (24.0-44.0) % Monocytes % (0.0-12.0) % Eosinophils % (0.00-5.0) % Basophils % (0.0-0.4) % Absolute Granulocytes (1.4-6.9) x10^3/uL Basophils # (0-0.4) x10^3/uL Sodium (137-145) mmol/L Potassium (3.5-5.1) mmol/L Chloride (98-107) mmol/L Carbon Dioxide (22-30) mmol/L Anion Gap (5-15) MEQ/L BUN (7-17) mg/dL Creatinine (0.52-1.04) mg/dL Estimated GFR ML/MIN Glucose (74-106) mg/dL Calcium (8.4-10.2) mg/dL Total Bilirubin (0.2-1.3) mg/dL AST (14-36) U/L ALT (0-35) U/L Alkaline Phosphatase (38-126) U/L Troponin I < 0.012 (0.000-0.034) ng/mL Serum Total Protein (6.3-8.2) g/dL Albumin (3.5-5.0) g/dL Lipase (23-300) U/L Urinalys Dipstick Clnc MAIN LAB Urine Color LT.YELLOW (YELLOW) Urine Appearance CLEAR (CLEAR) Urine pH 5.5 (5-6) Ur Specific [place] 1.015 (1.005-1.025) POC Urine Protein Conf NEGATIVE (Negative) Urine Ketones TRACE A (NEGATIVE) Urine Nitrite NEGATIVE (NEGATIVE) Urine Bilirubin NEGATIVE (NEGATIVE) Urine Urobilinogen 0.2 (0-1) mg/dL Urine Leukocytes NEGATIVE (NEGATIVE) Urine WBC (Auto) 0-2 (0-5) /HPF Urine RBC (Auto) NONE (0-2) /HPF U Epithel Cells (Auto) NONE (FEW) /HPF Urine Bacteria (Auto) RARE (NEGATIVE) /HPF Urine RBC NEGATIVE (0-5) Usman/ul Ur Culture Indicated? NO Urine Glucose NEGATIVE (NEGATIVE) mg/dL Influenza Type A Ag NEGATIVE (NEGATIVE) Influenza Type B Ag NEGATIVE (NEGATIVE) RSV (PCR) NEGATIVE (Negative) SARS-CoV-2 (PCR) NEGATIVE (NEGATIVE) 01/15/22 01/15/22 Range/Units 02:16 02:16 WBC 20.3 H (4.0-10.5) x10^3/uL RBC 4.98 (4.1-5.4) x10^6/uL Hgb 15.1 (12.0-16.0) g/dL Hct 46.5 (35-47) % MCV 93.4 (78-100) fL MCH 30.3 (26-32) pg MCHC 32.5 (32-36) g/dL RDW 12.9 (11.5-14.0) % Plt Count 307 (150-450) x10^3/uL MPV 9.8 (7.5-11.0) fL Gran % 84.4 H (36.0-66.0) % Immature Gran % (Auto) 0.8 H (0.00-0.4) % Nucleat RBC Rel Count 0.0 (0.00-0.1) % Eos # (Auto) 0.15 (0-0.5) x10^3/uL Immature Gran # (Auto) 0.16 H (0.00-0.03) x10^3u/L Absolute Lymphs (auto) 1.59 (1.0-4.6) x10^3/uL Absolute Monos (auto) 1.20 (0.0-1.3) x10^3/uL Absolute Nucleated RBC 0.00 (0.00-0.01) x10^3u/L Lymphocytes % 7.8 L (24.0-44.0) % Monocytes % 5.9 (0.0-12.0) % Eosinophils % 0.7 (0.00-5.0) % Basophils % 0.4 (0.0-0.4) % Absolute Granulocytes 17.10 H (1.4-6.9) x10^3/uL Basophils # 0.08 (0-0.4) x10^3/uL Sodium 141 (137-145) mmol/L Potassium 3.6 (3.5-5.1) mmol/L Chloride 103 (98-107) mmol/L Carbon Dioxide 26 (22-30) mmol/L Anion Gap 15.0 (5-15) MEQ/L BUN 19 H (7-17) mg/dL Creatinine 0.80 (0.52-1.04) mg/dL Estimated GFR > 60.0 ML/MIN Glucose 159 H (74-106) mg/dL Calcium 10.7 H (8.4-10.2) mg/dL Total Bilirubin 1.90 H (0.2-1.3) mg/dL AST 29 (14-36) U/L ALT 23 (0-35) U/L Alkaline Phosphatase 165 H (38-126) U/L Troponin I (0.000-0.034) ng/mL Serum Total Protein 8.3 H (6.3-8.2) g/dL Albumin 5.1 H (3.5-5.0) g/dL Lipase 71 (23-300) U/L Urinalys Dipstick Clnc Urine Color (YELLOW) Urine Appearance (CLEAR) Urine pH (5-6) Ur Specific [place] (1.005-1.025) POC Urine Protein Conf (Negative) Urine Ketones (NEGATIVE) Urine Nitrite (NEGATIVE) Urine Bilirubin (NEGATIVE) Urine Urobilinogen (0-1) mg/dL Urine Leukocytes (NEGATIVE) Urine WBC (Auto) (0-5) /HPF Urine RBC (Auto) (0-2) /HPF U Epithel Cells (Auto) (FEW) /HPF Urine Bacteria (Auto) (NEGATIVE) /HPF Urine RBC (0-5) Usman/ul Ur Culture Indicated? Urine Glucose (NEGATIVE) mg/dL Influenza Type A Ag (NEGATIVE) Influenza Type B Ag (NEGATIVE) RSV (PCR) (Negative) SARS-CoV-2 (PCR) (NEGATIVE) - Progress Progress: improved Progress Note: Patient reassessed. Patient feels more comfortable after morphine administration. Patient has a significant leukocytosis. Colitis observed on CAT scan. Antibiotics infused. Case discussed with Dr. Dorman covering Dr. Mckinney. Dr. Dorman accepts admission to observation. Plan of care discussed with patient. She agrees to admission [facility] for further evaluation and treatment. Portions of this note were created with voice recognition technology. There may be grammatical, spelling, punctuation or sound alike errors 01/15/22 05:[address] Rizwana Will see patient in: hospital (observation) Counseled pt/family regarding: lab results, diagnosis, rad results - Departure Departure Disposition: Observation Clinical Impression: Diarrhea, Leukocytosis, Total bilirubin, elevated Condition: Stable Critical Care Time: No Referrals: FRANK AL, [Primary Care Provider] - Follow up/PCP as directed
[2022-01-15] MEDS ORDERED: Reglan 10 MG/2 ML IV ONE (03:46)
[2022-01-15 03:47] LABS: INFLUENZA A NEGATIVE (NEGATIVE); INFLUENZA B NEGATIVE (NEGATIVE); RESPIRATORY SYNCTIAL VIRUS NEGATIVE (Negative); SARS-CoV-2 Xpert Express NEGATIVE (NEGATIVE)
[2022-01-15] MEDS ORDERED: SUBLIMAZE 100 MCG/2 ML IV ONE (03:47)
[2022-01-15] MEDS ORDERED: MORPHINE SULFATE 2 MG INJ IV ONE (03:51)
[2022-01-15] MEDS ORDERED: MORPHINE SULFATE 2 MG INJ ONE (03:56)
[2022-01-15] MEDS ORDERED: Reglan 10 MG/2 ML ONE (03:56)
[2022-01-15 04:49] LABS: Bacteria RARE /HPF (NEGATIVE); WBC 0-2 /HPF (0-5)
[2022-01-15 04:50] LABS: Appearance CLEAR (CLEAR); Bilirubin NEGATIVE (NEGATIVE); Dipstick done @ ? MAIN LAB; Glucose NEGATIVE (NEGATIVE); Ketones TRACE (NEGATIVE); Nitrite NEGATIVE (NEGATIVE); Ph 5.5 (5-6); Protein,Urine Dip NEGATIVE (Negative); RBC NEGATIVE Ery/ul (0-5); Specific Gravity 1.015 (1.005-1.025); Urine Cultured Indicated? NO; Urobilinogen 0.2 mg/dL (0-1)
[2022-01-15] MEDS ORDERED: Levofloxacin 500MG/100ML D5W 500 MG/100 ML BAG IV STA (05:06)
[2022-01-15] MEDS ORDERED: FLAGYL 500 MG IVPB 500 MG/100 ML BAG IV STA (05:07)
[2022-01-15] MEDS ORDERED: MORPHINE SULFATE 2 MG INJ IV PRN (05:26)
[2022-01-15] MEDS ORDERED: Zofran 4 MG/2 ML VIAL IV PRN (05:26)
[2022-01-15] MEDS ORDERED: Levofloxacin 500MG/100ML D5W 500 MG/100 ML BAG IV ONE (05:40)
[2022-01-15] MEDS ORDERED: FLAGYL 500 MG IVPB 500 MG/100 ML BAG IV ONE (05:40)
[2022-01-15] MEDS: Sodium Chloride 0.9% 1000 ML 1,000 ML IV SCH ×2 (06:28→17:42)
--- NOTE | 2022-01-15 09:17 | XRAY ---
Indication: Abdomen pain, nausea, and vomiting. Multiple contiguous axial images obtained through the abdomen and pelvis without contrast. Comparison: June 14, 2021 Lungs bases again demonstrates minimal fibrosis/scarring. Heart not enlarged. New small hiatal hernia. Noncontrasted stomach and bowel loops appear nonobstructed. Colon is now mildly fluid distended throughout with minimal pericolonic stranding especially left hemicolon favoring diffuse colitis. No free fluid/air. Again small left adrenal adenoma, appendectomy, cholecystotomy, and hysterectomy. Remaining liver, pancreas, spleen, adrenal glands, kidneys, ureters, and bladder are unremarkable for noncontrast exam. Minimal aortic calcifications without AAA. Osseous structures intact again with mild degenerative changes throughout the thoracolumbar spine, minimal grade 1 L4 spondylolisthesis, and L5-S1 laminectomy. Impression: 1. New CT findings favoring mild diffuse colitis. No complications. 2. Chronic findings including small hiatal hernia, left adrenal adenoma, and chronic bony findings. Comment: Preliminary interpretation made by C. No critical discrepancy.
[2022-01-15] MEDS ORDERED: FLUZONE HIGH-DOSE QUAD 2022-23 IM ONE (10:00)
[2022-01-15] MEDS: FLAGYL 500 MG IVPB 500 MG/100 ML BAG IV SCH ×3 (12:08→23:42)
[2022-01-15] MEDS ORDERED: TYLENOL 325 MG PO PRN (16:56)
[2022-01-15] MEDS ORDERED: TYLENOL 325 MG ONE (16:59)
[2022-01-15] MEDS ORDERED: AMITRIPTYLINE 25 MG TABLET PO PRN (19:11)
[2022-01-15] MEDS ORDERED: Tessalon Perles 100 MG PO PRN (19:13)
[2022-01-15] MEDS ORDERED: BENTYL 20 MG PO SCH (19:15)
[2022-01-15] MEDS ORDERED: Nitrostat 0.4 MG Tablet SL PRN (19:16)
[2022-01-15] MEDS ORDERED: Ditropan 5 MG PO SCH (22:00)
[2022-01-15] MEDS ORDERED: Wellbutrin SR 150 MG PO SCH (22:00)
[2022-01-15] MEDS ORDERED: ECOTRIN 81 MG PO SCH (22:00)
[2022-01-15] MEDS ORDERED: COREG 12.5 MG PO SCH (22:00)
[2022-01-15] MEDS ORDERED: Zestril 10 MG PO SCH (22:00)
[2022-01-16] MEDS: Sodium Chloride 0.9% 1000 ML 1,000 ML IV SCH (03:51)
[2022-01-16 04:47] LABS: Hematocrit 37.9 % (35-47); Hemoglobin 12.3 g/dL (12.0-16.0); Mean Cell Volume 94.8 fL (78-100); Mean Corpuscular Hemoglobin 30.8 pg (26-32); Mean Corpuscular Hgb Concent. 32.5 g/dL (32-36); Mean Platelet Volume 9.5 fL (7.5-11.0); Platelet Count 246 x10^3/uL (150-450); Red Cell Distribution Width 13.4 % (11.5-14.0); White Blood Count 10.8 x10^3/uL (4.0-10.5)
[2022-01-16 05:12] LABS: ANION GAP 8.6 MEQ/L (5-15); BLOOD UREA NITROGEN 10 mg/dL (7-17); CHLORIDE 109 mmol/L (98-107); Calcium 8.2 mg/dL (8.4-10.2); Carbon Dioxide 28 mmol/L (22-30); Creatinine 1 0.74 mg/dL (0.52-1.04); EST GLOMERULAR FILTRATION RATE > 60.0 ML/MIN; Glucose 91 mg/dL (74-106); Potassium 4.1 mmol/L (3.5-5.1); SODIUM 142 mmol/L (137-145)
[2022-01-16] MEDS: FLAGYL 500 MG IVPB 500 MG/100 ML BAG IV SCH (05:42)
[2022-01-16] MEDS ORDERED: Advair Hfa 115/21 Mcg Inhaler IH SCH (07:00)
[2022-01-16] MEDS ORDERED: BENTYL 20 MG PO PRN (07:00)
[2022-01-16] MEDS ORDERED: NON-FORMULARY ITEM (Semaglutide [Ozempic] 0.25 MG/0.2 ML Pen.Injctr) SQ SCH (07:30)
[2022-01-16 07:34] VITALS: BP 135/79; PULSE 71; O2SAT 96
[2022-01-16] MEDS ORDERED: NON-FORMULARY ITEM (Meloxicam [Mobic] 15 MG Tablet) PO SCH (10:00)
[2022-01-16] MEDS ORDERED: PATIENT OWN MEDICATION PO SCH (10:00)
[2022-01-16] MEDS ORDERED: Levofloxacin 500MG/100ML D5W 500 MG/100 ML BAG IV SCH (10:00)
[2022-01-16] MEDS ORDERED: NORVASC 5 MG PO SCH (10:00)
[2022-01-16] MEDS ORDERED: Coreg PO SCH (10:00)
[2022-01-16] MEDS ORDERED: BUPROPION HCL 200 MG PO SCH (10:00)
[2022-01-16] MEDS ORDERED: ZOCOR 20MG PO SCH (22:00)
[2022-01-16] MEDS ORDERED: NON-FORMULARY ITEM (Atorvastatin Calcium [Lipitor] 20 MG Tablet) PO SCH (22:00)
[2022-01-17] MEDS ORDERED: PATIENT OWN MEDICATION SQ SCH (08:00)
[2022-01-17] MEDS ORDERED: MELOXICAM PO SCH (10:00)
[2022-01-20] MEDS ORDERED: Fosamax 70 MG PO SCH (06:00)
== END 2022-01-16 11:10 | disposition home or self-care (01) ==
LOC: ED 00:53 → MED SURG 05:21
PROVIDERS: ADMIT Family Medicine; ATTEND Family Medicine
DX: K52.9 Noninfective gastroenteritis and colitis, unspecified (principal); Z79.899 Other long term (current) drug therapy; Z20.828 Contact with and (suspected) exposure to other viral communicable diseases; Z23 Encounter for immunization
CPT/HCPCS: 0241U; 36000; 36415; 74176; 80048; 80053; 81015; 82947; 83690; 84484; 85025; 85027; 93268; 94760; 96360; 96374; 96375; 99285; G0008; G0378; 90662; J1956; J2270; J2405; A9270-GY

== ENCOUNTER 2022-09-24 13:31 | Day surgery (SDC) | payer MEDICARE ==
[2022-09-24] MEDS ORDERED: Decadron 4 MG INJ IV ONE (13:32)
[2022-09-24] MEDS ORDERED: LIDOCAINE HCL 2% 100 MG/5 ML IJ ONE (13:32)
[2022-09-24] MEDS ORDERED: Versed 2 MG/2 ML Injection ONE (14:58)
[2022-09-24] MEDS ORDERED: DIPRIVAN 200 MG/20 ML IV ONE (15:36)
[2022-09-24] MEDS ORDERED: Lactated Ringers 1,000 ML IV ONE (15:54)
--- NOTE | 2022-09-24 18:33 | XRAY ---
Indication: Right C2-C5 MBB. Intraoperative fluoroscopy provided for 22 seconds. 2 digital spot image submitted for interpretation demonstrates posterior needle tips projecting over the expected right C2-C5 nerve roots. Correlate with intraoperative findings/report.
--- NOTE | 2022-09-24 18:56 | XRAY ---
22 seconds of fluoroscopy was used in surgery for a right C2-C5 MBB.
== END 2022-09-24 16:05 | disposition home or self-care (01) ==
LOC: SDC-PAIN 13:31
PROVIDERS: ATTEND Psychiatry & Neurology Pain Medicine
DX: M47.812 Spondylosis without myelopathy or radiculopathy, cervical region (principal); Z79.899 Other long term (current) drug therapy
CPT/HCPCS: 64490; 64491; 64492; 72040; 77002; J1100; J2250; J2704

== ENCOUNTER 2022-11-26 08:33 | Day surgery (SDC) | payer MEDICARE ==
[2022-11-26] MEDS ORDERED: BUPIVACAINE 0.5% VIAL IJ ONE (08:34)
[2022-11-26] MEDS ORDERED: Decadron 4 MG INJ IV ONE (08:34)
[2022-11-26] MEDS ORDERED: DIPRIVAN 200 MG/20 ML IV ONE (11:07)
[2022-11-26] MEDS ORDERED: Lactated Ringers 1,000 ML IV ONE (11:44)
--- NOTE | 2022-11-26 12:31 | XRAY ---
Indication: Right C2-C5 MBB. Intraoperative fluoroscopy provided for 25 seconds. 2 digital spot image submitted for interpretation demonstrates posterior needle tips projecting over the expected right C2-C5 nerve roots. Correlate with intraoperative findings/report.
--- NOTE | 2022-11-26 13:58 | XRAY ---
25 seconds of fluoroscopy was used in surgery for a right C2-C5 MBB.
== END 2022-11-26 11:42 | disposition home or self-care (01) ==
LOC: SDC-PAIN 08:33
PROVIDERS: ATTEND Psychiatry & Neurology Pain Medicine
DX: M47.812 Spondylosis without myelopathy or radiculopathy, cervical region (principal); Z79.899 Other long term (current) drug therapy
CPT/HCPCS: 64490; 64491; 64492; 72040; 77002; J1100; J2704

== ENCOUNTER 2022-12-24 14:23 | Day surgery (SDC) | payer MEDICARE ==
[2022-12-24] MEDS ORDERED: LIDOCAINE HCL 2% 100 MG/5 ML IJ ONE (14:24)
[2022-12-24] MEDS ORDERED: Decadron 4 MG INJ IV ONE (14:24)
[2022-12-24] MEDS ORDERED: DIPRIVAN 200 MG/20 ML IV ONE (17:32)
[2022-12-24] MEDS ORDERED: Lactated Ringers 1,000 ML IV ONE (17:43)
--- NOTE | 2022-12-24 21:26 | XRAY ---
Indication: Left C2-C5 MBB. Intraoperative fluoroscopy provided for 31 seconds. 5 digital spot image submitted for interpretation demonstrates posterior needle tips projecting over the expected left C2-C5 nerve roots. Correlate with intraoperative findings/report.
--- NOTE | 2022-12-25 09:39 | XRAY ---
31 seconds of fluoroscopy was used in surgery for a left C2-C5 MBB.
== END 2022-12-24 18:00 | disposition home or self-care (01) ==
LOC: SDC-PAIN 14:23
PROVIDERS: ATTEND Psychiatry & Neurology Pain Medicine
DX: M47.812 Spondylosis without myelopathy or radiculopathy, cervical region (principal)
CPT/HCPCS: 64490; 64491; 64492; 72040; 77002; J1100; J2704

== ENCOUNTER 2023-01-28 12:52 | Day surgery (SDC) | payer MEDICARE ==
[2023-01-28] MEDS ORDERED: BUPIVACAINE 0.5% VIAL IJ ONE (12:53)
[2023-01-28] MEDS ORDERED: Decadron 4 MG INJ IV ONE (12:53)
[2023-01-28 13:48] LABS: ALBUMIN 4.7 g/dL (3.5-5.0); Direct Bilirubin 0.1 mg/dL (0.0-0.4); Total Protein 8.4 g/dL (6.3-8.2)
[2023-01-28] MEDS ORDERED: DIPRIVAN 200 MG/20 ML IV ONE (15:08)
[2023-01-28] MEDS ORDERED: Lactated Ringers 1,000 ML IV ONE (15:40)
--- NOTE | 2023-01-28 17:15 | XRAY ---
Indication: Left C2-C5 MBB. Intraoperative fluoroscopy provided for 20 seconds. 2 digital spot images submitted for interpretation demonstrates posterior needle tips projecting over the left C2-C5 nerve roots. Correlate with intraoperative findings/report.
--- NOTE | 2023-01-28 17:42 | XRAY ---
20 seconds of fluoroscopy was used in surgery for a left C2-C5 MBB.
== END 2023-01-28 15:46 | disposition home or self-care (01) ==
LOC: SDC-PAIN 12:52
PROVIDERS: ATTEND Psychiatry & Neurology Pain Medicine
DX: M47.812 Spondylosis without myelopathy or radiculopathy, cervical region (principal)
CPT/HCPCS: 36415; 64490; 64491; 64492; 72040; 77002; 80076; J1100; J2704

== ENCOUNTER 2023-02-18 15:33 | Emergency (ER) | payer MEDICARE ==
--- NOTE | 2023-02-18 16:04 | ERPHSYRPT ---
- History of Present Illness Time Seen by Provider: 02/18/23 16:04 Source: patient Exam Limitations: no limitations Physician History: This is a right-handed 68-year-old white female patient of nurse practitioner Donato who was using her hunting knife to cut a tag off of a toy when it accidentally slipped and cut the dorsal aspect of her left middle finger. Patient is not on any anticoagulation therapy. Her last tetanus injection was in 2013. Patient has a history anxiety, hypertension, coronary disease and CVA. Timing/Duration: today Quality: painful Severity: mild Location: hands (Left hand third digit dorsal, distal aspect) Associated Symptoms: denies symptoms Allergies/Adverse Reactions: Iodinated Contrast Media Allergy (Severe, Verified 02/18/23 15:59) Anaphylactic Reaction nitrofurantoin [From Macrodantin] Allergy (Severe, Verified 02/18/23 15:59) Anaphylactic Reaction acetaminophen [From Vicodin] Allergy (Unknown, Verified 02/18/23 15:59) Itching amoxicillin [From Augmentin] Allergy (Unknown, Verified 02/18/23 15:59) Vomiting clavulanic acid [From Augmentin] Allergy (Unknown, Verified 02/18/23 15:59) Vomiting fentanyl Allergy (Unknown, Verified 02/18/23 15:59) Hives hydrocodone [From Vicodin] Allergy (Unknown, Verified 02/18/23 15:59) Itching hydromorphone [From Dilaudid] Allergy (Unknown, Verified 02/18/23 15:59) Hives Sulfa (Sulfonamide Antibiotics) Allergy (Unknown, Verified 02/18/23 15:59) Hives sulfamethoxazole [From Septra] Allergy (Unknown, Verified 02/18/23 15:59) Vomiting trimethoprim [From Septra] Allergy (Verified 02/18/23 15:59) Vomiting Home Medications: Amlodipine Besylate 5 mg [Norvasc 5 mg] 5 mg PO DAILY 01/19/21 [History] Aspirin 81 mg PO HS 01/19/21 [History] Atorvastatin Calcium [Lipitor] 20 mg PO HS 01/19/21 [History] Carvedilol [Coreg ] 6.25 mg PO BID 01/19/21 [History] Dicyclomine HCl 20 mg [Bentyl 20 mg] 20 mg PO TID PRN PRN 01/19/21 [History] Nitroglycerin 0.4 mg SL Q5MIN PRN MR X 3 PRN 01/19/21 [History] Oxybutynin Chloride [Oxybutynin Chloride ER] 10 mg PO BID 01/19/21 [History] Umeclidinium Brm/Vilanterol Tr [Anoro Ellipta 62.5-25 Mcg INH] 1 each IH LUNCH 01/19/21 [History] buPROPion HCL [Wellbutrin Sr] 200 mg PO BID 01/19/21 [History] lisinopriL [Lisinopril] 10 mg PO HS 01/19/21 [History] Alendronate Sodium 70 mg [Fosamax 70 MG] 70 mg PO WEEKLY 06/14/21 [History] Amitriptyline HCl 25 mg [Amitriptyline 25 mg Tablet] 25 mg PO HS PRN PRN 01/15/22 [History] Benzonatate 100 mg PO TID 01/15/22 [History] Meloxicam [Mobic] 7.5 mg PO DAILY 01/15/22 [History] Semaglutide [Ozempic] 0.25 mg SQ WEEKLY 01/15/22 [History] Hx Tetanus, Diphtheria Vaccination/Date Given: No Hx Influenza Vaccination/Date Given: No Hx Pneumococcal Vaccination/Date Given: No Travel Risk - International Travel Have you traveled outside of the country in past 3 weeks: No - Coronavirus Screening Are you exhibiting any of the following symptoms?: No Close contact with a COVID-19 positive Pt in past 14-21 Days: No - Vaccine Status Have you recieved a Covid-19 vaccination: No - Review of Systems Constitutional: No Symptoms Eyes: No Symptoms Ears, Nose, & Throat: No Symptoms Respiratory: No Symptoms Cardiac: No Symptoms Abdominal/Gastrointestinal: No Symptoms Genitourinary Symptoms: No Symptoms Musculoskeletal: No Symptoms Skin: Other (1 cm laceration left middle finger dorsal, distal aspect) Neurological: No Symptoms Psychological: No Symptoms Endocrine: No Symptoms Hematologic/Lymphatic: No Symptoms Immunological/Allergic: No Symptoms All Other Systems: Reviewed and Negative - Past Medical History Pertinent Past Medical History: Yes Neurological History: Stroke ENT History: No Pertinent History Cardiac History: Hypertension, Myocardial Infarction (MT), Other Respiratory History: Asthma Endocrine Medical History: No Pertinent History Musculoskeletal History: No Pertinent History GI Medical History: Hemorrhoids, Polyps History: Other Psycho-Social History: Anxiety, Depression Female Reproductive Disorders: No Pertinent History Other Medical History: nodule on lung and adrenal gland, frequent UTI, mitral valve prolapse - Past Surgical History Past Surgical History: Yes Neuro Surgical History: No Pertinent History Cardiac: Cardiac Catheterization Respiratory: No Pertinent History Gastrointestinal: Cholecystectomy Genitourinary: No Pertinent History Musculoskeletal: Orthopedic Surgery Female Surgical History: Hysterectomy, Section, Tubal Ligation Other Surgical History: left ankle, rotator cuff, carpal tunnel, blockage to rt corotid - Social History Smoking Status: Never smoker Exposure to second hand smoke: Yes Drug Use: none Patient Lives Alone: No - Nursing Vital Signs Nursing Vital Signs: Initial Vital Signs Temperature 98.7 F 02/18/23 16:08 Pulse Rate 89 02/18/23 16:08 Respiratory Rate 17 02/18/23 16:08 Blood Pressure 189/90 02/18/23 16:08 O2 Sat by Pulse Oximetry 98 02/18/23 16:08 Pain Scale Pain Intensity 4 - Physical Exam General Appearance: no apparent distress, alert Eye Exam: PERRL/EOMI, eyes nml inspection Ears, Nose, Throat Exam: normal ENT inspection, moist mucous membranes Neck Exam: normal inspection, non-tender, supple, full range of motion Respiratory Exam: airway intact, No chest tenderness, No respiratory distress Gastrointestinal/Abdomen Exam: No tenderness Pelvic Exam: not done Rectal Exam: not done Back Exam: normal inspection, normal range of motion, No CVA tenderness, No vertebral tenderness Extremity Exam: normal range of motion, pelvis stable, lacerations (1 cm, left middle finger dorsal aspect, distal location laceration. No bleeding. No foreign body. Neurovascularly intact. 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, normal mood/affect, nml cerebellar function, nml station & gait, sensation nml Skin Exam: laceration (See above left middle finger, dorsal, distal aspect) Lymphatic Exam: No adenopathy SpO2 Interpretation: normal O2 Delivery: Room Air Procedures - Laceration/Wound Repair Left Distal Dorsal Finger Time of Procedure: 16:20 Wound Location: Left, hand (Third (middle) finger) Wound Length (cm): 1 Wound's Depth, Shape: superficial, linear Wound Explored: clean (Wound explored to the base in a bloodless field no foreig n body noted.) Irrigated: Yes Hibiclens Prep: Yes Wound Repaired With: Steri-strips, Dermabond (After application of benzoin) - Course Nursing assessment & vital signs reviewed: Yes Ordered Tests: Medication Summary Discontinued Medications Generic Name Dose Route Start Last Admin Trade Name Freq PRN Reason Stop Dose Admin Diphtheria/Tetanus/Acell Pertussis 0.5 ml 02/18/23 16:28 Tdap --Diph,Pertuss(Acell),Tet Vac/Pf 0.5 Ml Vial IM 02/18/23 16:29 .ONCE ONE - Progress Progress: improved Progress Note: 02/18/23 16:34 Patient's medical issue is 1 of low complexity the level complex in the workup performed based on review of the patient's past medical history, review the patient's medication list, review the patient's drug allergy list, history present illness and physical findings on examination. No radiographic or laboratory studies are necessary in this patient. Patient desires an update tetanus injection Counseled pt/family regarding: diagnosis Medical Desision Making - Diagnostic Testing Diagnostic test were ordered, analyzed, and reviewed by me: No - Risk of complications Minimal Risk: Minimal risk of morbidity - Departure Departure Disposition: Home Clinical Impression: Finger laceration Condition: Stable Critical Care Time: No Referrals: WADE CLEMENTS NP [Primary Care Provider] - Follow up/PCP as directed Additional Instructions: Keep the current top bandage in place until the evening of 02/19/2023. At that time remove the top bandage. Leave the Steri-Strips in place. At that time you may wash the site with soap and water gently. Blot dry or use a humanities division chair to dry the site. Leave the Steri-Strips in place until they fall off on their own. Trim the Steri-Strips as they curl up.
[2023-02-18 16:21] VITALS: BP 189/90; PULSE 89; RESP 17; TEMP 98.7; O2SAT 98
[2023-02-18] MEDS ORDERED: Adacel Vial IM ONE ×2 (16:28→16:30)
== END 2023-02-18 16:46 | disposition home or self-care (01) ==
LOC: ED 15:33
DX: S61.213A Laceration without foreign body of left middle finger without damage to nail, initial encounter (principal); W26.0XXA Contact with knife, initial encounter; I10 Essential (primary) hypertension; Z79.85 Long-term (current) use of injectable non-insulin antidiabetic drugs; Z79.899 Other long term (current) drug therapy; Z28.310 Unvaccinated for COVID-19; Z23 Encounter for immunization
CPT/HCPCS: 12001; 90471; 90715; 99282

== ENCOUNTER 2023-02-26 08:29 | Day surgery (SDC) | payer MEDICARE ==
[2023-02-26] MEDS ORDERED: Decadron 4 MG INJ IV ONE (08:30)
[2023-02-26] MEDS ORDERED: BUPIVACAINE 0.5% VIAL IJ ONE (08:30)
[2023-02-26] MEDS ORDERED: XYLOCAINE-MPF 1% 5ML SDV IJ ONE (08:30)
[2023-02-26] MEDS ORDERED: DIPRIVAN 200 MG/20 ML IV ONE ×2 (10:38→10:55)
--- NOTE | 2023-02-26 12:04 | XRAY ---
Indication: Right C2-C5 RFA. Intraoperative fluoroscopy provided for 1 minute. 5 digital spot image submitted for interpretation demonstrates posterior needle tips projecting over the expected right C2-C5 nerve roots. Correlate with intraoperative findings/report.
--- NOTE | 2023-02-26 13:06 | XRAY ---
One minute of fluoroscopy was used in surgery for a right C2-C5 RFA.
[2023-02-26] MEDS ORDERED: Lactated Ringers 1,000 ML IV ONE (16:18)
== END 2023-02-26 11:15 | disposition home or self-care (01) ==
LOC: SDC-PAIN 08:29
PROVIDERS: ATTEND Psychiatry & Neurology Pain Medicine
DX: M47.812 Spondylosis without myelopathy or radiculopathy, cervical region (principal); Z79.899 Other long term (current) drug therapy
CPT/HCPCS: 64633; 64634; 72040; 77002; J1100; J2704

== ENCOUNTER 2023-04-08 12:56 | Day surgery (SDC) | payer MEDICARE, OTHER ==
[2023-04-08] MEDS ORDERED: Decadron 4 MG INJ IV ONE (12:57)
[2023-04-08] MEDS ORDERED: BUPIVACAINE 0.5% VIAL IJ ONE (12:57)
[2023-04-08] MEDS ORDERED: XYLOCAINE-MPF 1% 5ML SDV IJ ONE (12:57)
[2023-04-08] MEDS ORDERED: DIPRIVAN 200 MG/20 ML IV ONE (16:16)
[2023-04-08] MEDS ORDERED: Lactated Ringers 1,000 ML IV ONE (17:05)
--- NOTE | 2023-04-08 20:18 | XRAY ---
Indication: Left C2-C5 RFA Intraoperative fluoroscopy provided for 23 seconds. 2 digital spot image submitted for interpretation demonstrates posterior needle tips projecting over the expected left C2-C5 nerve roots. Correlate with intraoperative findings/report.
--- NOTE | 2023-04-09 09:37 | XRAY ---
23 seconds of fluoroscopy was used in surgery for a left C2-C5 RFA.
== END 2023-04-08 16:54 | disposition home or self-care (01) ==
LOC: SDC-PAIN 12:56
PROVIDERS: ATTEND Psychiatry & Neurology Pain Medicine
DX: M47.812 Spondylosis without myelopathy or radiculopathy, cervical region (principal)
CPT/HCPCS: 64633; 64634; 72040; 77002; J1100; J2704

== ENCOUNTER 2023-09-21 18:57 | Emergency (ER) | payer MEDICARE, OTHER ==
[2023-09-21 19:05] VITALS: TEMP 98
--- NOTE | 2023-09-21 19:06 | ERPHSYRPT ---
- History of Present Illness Time Seen by Provider: 09/21/23 19:06 Historian: patient Exam Limitations: no limitations Patient Subjective Stated Complaint: C/O chest pain that woke her up out of her sleep approx one hour ago Triage Nursing Assessment: Patient ambulated back to ER with a cane; refused a w/c. She is alert and oriented. Hard of hearing; forgot hearing aids at home. No SOB. Skin tone normal. No edema. Physician History: This is a 68-year-old white female patient who has a history of hypertension, hyperlipidemia, CVA, myocardial infarction with no CABG and no coronary artery stents, anxiety issues and diabetes and presents with caudal subxiphoid/epigastric discomfort that woke her up out of his sleep 1 hour prior to arrival. She denies shortness of breath. Patient does see a pain specialist, Dr. Sal. Patient could not find her nitroglycerin to take. Patient arrives to the emergency department with a systolic blood pressure in the 180s. Patient sees Dr. Marrero as her warp preparer. Timing/Duration: today Quality: aching, pressure Location: substernal, epigastric Chest Pain Radiation: no radiation (Caudal) Severity of Pain-Max: mild (To moderate) Severity of Pain-Current: mild Modifying Factors: Improves With: nothing Associated Symptoms: denies symptoms Prior Chest Pain/Cardiac Workup: cardiac cath Nitro Today/Relief: no nitro taken today Aspirin Treatment Today: 81 mg x 4, provided by ED Allergies/Adverse Reactions: Iodinated Contrast Media Allergy (Severe, Verified 09/21/23 18:59) Anaphylactic Reaction nitrofurantoin [From Macrodantin] Allergy (Severe, Verified 09/21/23 18:59) Anaphylactic Reaction acetaminophen [From Vicodin] Allergy (Unknown, Verified 09/21/23 18:59) Itching amoxicillin [From Augmentin] Allergy (Unknown, Verified 09/21/23 18:59) Vomiting clavulanic acid [From Augmentin] Allergy (Unknown, Verified 09/21/23 18:59) Vomiting fentanyl Allergy (Unknown, Verified 09/21/23 18:59) Hives hydrocodone [From Vicodin] Allergy (Unknown, Verified 09/21/23 18:59) Itching hydromorphone [From Dilaudid] Allergy (Unknown, Verified 09/21/23 18:59) Hives Sulfa (Sulfonamide Antibiotics) Allergy (Unknown, Verified 09/21/23 18:59) Hives sulfamethoxazole [From Novra] Allergy (Unknown, Verified 09/21/23 18:59) Vomiting trimethoprim [From ] Allergy (Verified 09/21/23 18:59) Vomiting Home Medications: Amlodipine Besylate 5 mg [Norvasc 5 mg] 5 mg PO DAILY 01/19/21 [History] Aspirin 81 mg PO HS 01/19/21 [History] Atorvastatin Calcium [Lipitor] 20 mg PO HS 01/19/21 [History] Carvedilol [Coreg ] 12.5 mg PO BID 01/19/21 [History] Dicyclomine HCl 20 mg [Bentyl 20 mg] 20 mg PO TID PRN PRN 01/19/21 [H istory] Nitroglycerin 0.4 mg SL Q5MIN PRN MR X 3 PRN 01/19/21 [History] Oxybutynin Chloride [Oxybutynin Chloride ER] 10 mg PO BID 01/19/21 [History] Umeclidinium Brm/Vilanterol Tr [Anoro Ellipta 62.5-25 Mcg INH] 1 each IH LUNCH 01/19/21 [History] lisinopriL [Lisinopril] 20 mg PO HS 01/19/21 [History] Alendronate Sodium 70 mg [Fosamax 70 MG] 70 mg PO WEEKLY 06/14/21 [History] Benzonatate 100 mg PO TID PRN 01/15/22 [History] Cholecalciferol (Vitamin D3) [Vitamin D] 50,000 unit PO WEEKLY 09/21/23 [History] Nortriptyline HCl 25 mg PO HS 09/21/23 [History] Tramadol HCl 50 mg [Ultram 50 mg] 50 mg PO BID PRN 09/21/23 [History] Venlafaxine HCl ER 75 mg [Effexor XR 75 MG] 75 mg PO DAILY 09/21/23 [History] Hx Tetanus, Diphtheria Vaccination/Date Given: Yes Hx Influenza Vaccination/Date Given: No Hx Pneumococcal Vaccination/Date Given: No Immunizations Up to Date: Yes Travel Risk - International Travel Have you traveled outside of the country in past 3 weeks: No - Emerging Infectious Disease Are you exhibiting symptoms associated with any current EIDs: No - Review of Systems Constitutional: No Symptoms Eyes: No Symptoms Ears, Nose, & Throat: No Symptoms Respiratory: No Symptoms Cardiac: Chest Pain Abdominal/Gastrointestinal: No Symptoms Genitourinary Symptoms: No Symptoms Musculoskeletal: No Symptoms Skin: No Symptoms Neurological: No Symptoms Psychological: No Symptoms Endocrine: No Symptoms Hematologic/Lymphatic: No Symptoms Immunological/Allergic: No Symptoms All Other Systems: Reviewed and Negative - Past Medical History Pertinent Past Medical History: Yes Neurological History: Stroke ENT History: No Pertinent History Cardiac History: Hypertension, Myocardial Infarction ([place]), Other Respiratory History: Asthma Endocrine Medical History: No Pertinent History Musculoskeletal History: No Pertinent History GI Medical History: Hemorrhoids, Polyps History: Other Psycho-Social History: Anxiety, Depression Female Reproductive Disorders: No Pertinent History Other Medical History: nodule on lung and adrenal gland, frequent UTI, mitral valve prolapse. Loft Patternmaker: Dr. Marrero - Past Surgical History Past Surgical History: Yes Neuro Surgical History: No Pertinent History Cardiac: Cardiac Catheterization Respiratory: No Pertinent History Gastrointestinal: Cholecystectomy Genitourinary: No Pertinent History Musculoskeletal: Orthopedic Surgery Female Surgical History: Hysterectomy, Section, Tubal Ligation Other Surgical History: left ankle, rotator cuff, carpal tunnel, blockage to rt corotid - Social History Smoking Status: Never smoker Exposure to second hand smoke: Yes Drug Use: none Patient Lives Alone: No - Social Determinants of Health Will the patient participate in the screening: Yes Do you worry about a steady place to live?: No Do you have any problems with any of the following?: No known problems In the past 12 months,have you had to go without utilities?: No Transportation Issues: No Has anyone in your support network made you feel unsafe?: No Have you or anyone in your house had to go without enough: No - Nursing Vital Signs Nursing Vital Signs: Initial Vital Signs Temperature 98 F 09/21/23 19:00 Pulse Rate 82 09/21/23 19:00 Respiratory Rate 20 09/21/23 19:00 Blood Pressure 198/103 09/21/23 19:00 O2 Sat by Pulse Oximetry 98 09/21/23 19:00 Pain Scale Pain Intensity 6 - Physical Exam General Appearance: no apparent distress, alert, anxiety Eye Exam: PERRL/EOMI Ears, Nose, Throat Exam: normal ENT inspection, moist mucous membranes Neck Exam: normal inspection, non-tender, supple, full range of motion Respiratory Exam: normal breath sounds, lungs clear, airway intact, No chest tenderness, No respiratory distress Cardiovascular Exam: regular rate/rhythm, normal heart sounds, normal peripheral pulses Gastrointestinal/Abdomen Exam: soft, normal bowel sounds, No tenderness Pelvic Exam: not done Rectal Exam: not done Back Exam: normal inspection, normal range of motion, No CVA tenderness, No vertebral tenderness Extremity Exam: normal inspection, normal range of motion, pelvis stable Neurologic Exam: alert, oriented x 3, cooperative, nut sifter II-XII nml as tested, nml cerebellar function, nml station & gait, agitation Skin Exam: normal color, warm, dry Lymphatic Exam: No adenopathy SpO2 Interpretation: normal SpO2: 98 - Course Nursing assessment & vital signs reviewed: Yes EKG Interpreted by Me: RATE (83), Sinus Rhythm, Left Agency Deviation, NORMAL INTERVALS, NORMAL QRS, Other (No acute ischemic changes on today's twelve-lead EKG. The QTc is 417. No significant change when compared to twelve-lead EKG dated 06/14/2021.) Ordered Tests: Active Orders 24 hr Category Date Time Status Staffing Program Manager STAT Care 09/21/23 19:08 Active EKG-ER Only STAT Care 09/21/23 19:08 Active IV Insertion STAT Care 09/21/23 19:08 Active Pulse Oximetry (ED) STAT Care 09/21/23 19:08 Active CHEST 1 VIEW (PORTABLE) Stat Exams 09/21/23 19:08 Taken CHEST WITH CONTRAST [CT] Stat Exams 09/21/23 20:40 Taken CBC W DIFF Stat Lab 09/21/23 19:15 Completed CMP Stat Lab 09/21/23 19:15 Completed D-DIMER QUANTITATIVE Stat Lab 09/21/23 19:15 Completed MAGNESIUM Stat Lab 09/21/23 19:15 Completed NT PRO BNPII Stat Lab 09/21/23 19:15 Completed TROPONIN Q4H Lab 09/21/23 19:15 Completed TROPONIN Q4H Lab 09/21/23 22:15 Completed TROPONIN Q4H Lab 09/22/23 03:15 Ordered Medication Summary Discontinued Medications Generic Name Dose Route Start Last Admin Trade Name Freq PRN Reason Stop Dose Admin Aspirin 324 mg 09/21/23 19:08 09/21/23 19:17 Aspirin 81 Mg Tab.Chew PO 09/21/23 19:09 324 mg STAT ONE Administration Aspirin Confirm 09/21/23 19:16 Aspirin 81 Mg Tab.Chew Administered 09/21/23 19:17 Dose 324 mg .ROUTE .STK-MED ONE Methylprednisolone Sodium 0 mg 09/21/23 20:40 09/21/23 20:44 Succinate 125 mg/ Sterile IV 09/21/23 20:41 125 mg Water 2 ml STAT ONE Administration Diphenhydramine HCl 50 mg 09/21/23 20:40 09/21/23 20:44 Diphenhydramine Hcl 50 Mg/Ml Vial IV 09/21/23 20:41 50 mg STAT ONE Administration Diphenhydramine HCl Confirm 09/21/23 20:42 Diphenhydramine Hcl 50 Mg/Ml Vial Administered 09/21/23 20:43 Dose 50 mg .ROUTE .STK-MED ONE Labetalol HCl 10 mg 09/21/23 20:59 09/21/23 21:21 Labetalol Hcl 20 Mg/4 Ml Disp.Syringe IV 09/21/23 21:00 10 mg STAT ONE Administration Labetalol HCl Confirm 09/21/23 21:21 Labetalol Hcl 20 Mg/4 Ml Disp.Syringe Administered 09/21/23 21:22 Dose 20 mg IV .STK-MED ONE Methylprednisolone Sodium Succinate Confirm 09/21/23 20:42 Methylprednis Sod Succ 125 Mg/2 Ml Vial Administered 09/21/23 20:43 Dose 125 mg .ROUTE .STK-MED ONE Sterile Water Confirm 09/21/23 20:42 Water For Injection,Sterile 10 Ml Vial Administered 09/21/23 20:43 Dose 10 ml IJ .STK-MED ONE Lab/Rad Data: Laboratory Result Diagrams 09/21/23 19:15 09/21/23 19:15 Laboratory Results 09/21/23 09/21/23 09/21/23 Range/Units 22:15 19:15 19:15 WBC (3.98-10.04) x10^3/uL RBC (3.93-5.22) x10^6/uL Hgb (11.2-15.7) g/dL Hct (34.1-44.9) % MCV (79.4-94.8) fL MCH (25.6-32.2) pg MCHC (32.2-35.5) g/dL RDW (11.7-14.4) % Plt Count (182-369) x10^3/uL MPV (9.4-12.3) fL Gran % (34.0-71.1) % Immature Gran % (Auto) (0.001-0.429) % Nucleat RBC Rel Count (0.00-0.2) % Eos # (Auto) (0.04-0.36) x10^3/uL Immature Gran # (Auto) (0.001-0.031) x10^3u/L Absolute Lymphs (auto) (1.18-3.74) x10^3/uL Absolute Monos (auto) (0.24-0.86) x10^3/uL Absolute Nucleated RBC (0.00-0.012) x10^3u/L Lymphocytes % (19.3-51.7) % Monocytes % (4.7-12.5) % Eosinophils % (0.7-5.8) % Basophils % (0.1-1.2) % Absolute Granulocytes (1.56-6.13) x10^3/uL Basophils # (0.01-0.08) x10^3/uL D-Dimer 0.88 H* (0.0-0.50) mg/L Sodium (135-145) mmol/L Potassium (3.5-5.1) mmol/L Chloride (98-107) mmol/L Carbon Dioxide (22-30) mmol/L Anion Gap (5-15) MEQ/L BUN (7-17) mg/dL Creatinine (0.52-1.04) mg/dL Estimated GFR ML/MIN Glucose (74-106) mg/dL Calcium (8.4-10.2) mg/dL Magnesium (1.6-2.3) mg/dL Total Bilirubin (0.2-1.3) mg/dL AST (14-36) U/L ALT (0-35) U/L Alkaline Phosphatase (38-126) U/L Troponin I < 0.012 < 0.012 (0.000-0.033) ng/mL NT-Pro-B Natriuret Pep (<300) pg/mL Serum Total Protein (6.3-8.2) g/dL Albumin (3.5-5.0) g/dL 09/21/23 09/21/23 Range/Units 19:15 19:15 WBC 9.4 (3.98-10.04) x10^3/uL RBC 4.35 (3.93-5.22) x10^6/uL Hgb 13.4 (11.2-15.7) g/dL Hct 40.5 (34.1-44.9) % MCV 93.1 (79.4-94.8) fL MCH 30.8 (25.6-32.2) pg MCHC 33.1 (32.2-35.5) g/dL RDW 13.2 (11.7-14.4) % Plt Count 266 (182-369) x10^3/uL MPV 9.5 (9.4-12.3) fL Gran % 62.8 (34.0-71.1) % Immature Gran % (Auto) 0.5 H (0.001-0.429) % Nucleat RBC Rel Count 0.0 (0.00-0.2) % Eos # (Auto) 0.53 H (0.04-0.36) x10^3/uL Immature Gran # (Auto) 0.05 H (0.001-0.031) x10^3u/L Absolute Lymphs (auto) 2.09 (1.18-3.74) x10^3/uL Absolute Monos (auto) 0.75 (0.24-0.86) x10^3/uL Absolute Nucleated RBC 0.00 (0.00-0.012) x10^3u/L Lymphocytes % 22.4 (19.3-51.7) % Monocytes % 8.0 (4.7-12.5) % Eosinophils % 5.7 (0.7-5.8) % Basophils % 0.6 (0.1-1.2) % Absolute Granulocytes 5.87 (1.56-6.13) x10^3/uL Basophils # 0.06 (0.01-0.08) x10^3/uL D-Dimer (0.0-0.50) mg/L Sodium 142 (135-145) mmol/L Potassium 4.2 (3.5-5.1) mmol/L Chloride 106 (98-107) mmol/L Carbon Dioxide 28 (22-30) mmol/L Anion Gap 12.2 (5-15) MEQ/L BUN 15 (7-17) mg/dL Creatinine 0.66 (0.52-1.04) mg/dL Estimated GFR 95.5 ML/MIN Glucose 131 H (74-106) mg/dL Calcium 9.5 (8.4-10.2) mg/dL Magnesium 2.2 (1.6-2.3) mg/dL Total Bilirubin 0.70 (0.2-1.3) mg/dL AST 27 (14-36) U/L ALT 20 (0-35) U/L Alkaline Phosphatase 76 (38-126) U/L Troponin I (0.000-0.033) ng/mL NT-Pro-B Natriuret Pep 148 (<300) pg/mL Serum Total Protein 7.6 (6.3-8.2) g/dL Albumin 4.4 (3.5-5.0) g/dL - Progress Progress: improved, re-examined Air Movement: good Progress Note: 09/21/23 21:17 My medical decision making and the assignment of moderate complexity to this patient's medical issue today is based on review of the patient's past medical history, review of patient's medication list, review the patient drug allergy list, history present illness and physical findings on examination. The workup in this patient includes placement of intravenous line, twelve-lead EKG, BNP, D- dimer level, troponin level, CBC, CMP, magnesium level. Differential diagnosis includes but is not limited to hypertensive because of chest pain, electrolyte abnormalities, arrhythmia, myocardial infarction, pulmonary embolism, pneumonia I interpreted the patient's laboratory data results. The patient has an elevated D-dimer. She also has recorded in her chart that she is allergic to iodinated contrast media. This is actually an accurate as it pertains to new contrast intravenous material. Patient has had the new IV contrast without having any adverse effect. Patient states that her reaction to IV contrast that was given to her 30 years ago was allergic reaction. We will provide her with a venous Benadryl and intravenous Solu-Medrol prior to her receiving the contrast for her CT scan of the chest 09/21/23 21:20 I interpreted the patient's preliminary chest x-ray report. There is right base atelectasis versus scarring versus early infiltrate. Remainder of the film shows no other acute processes 09/21/23 22:43 Patient was reexamined. Patient has no chest pain at this time. Patient's systolic blood pressure is now 160. CT scan of the chest with contrast shows no pulmonary embolism. This study was interpreted by the radiologist and I reviewed the impression. The impression states normal CT chest pulmonary embolus exam. 09/21/23 22:47 Repeat twelve-lead EKG was performed on 09/21/2023 at 2212. Patient has a heart rate 81 bpm patient is in normal sinus rhythm. There is normal axis deviation. There are normal intervals, there are normal QRS, QTc is 441. No evidence of any acute ischemia on this repeat twelve-lead EKG. No change from the prior twelve-lead EKG. Blood Culture(s) Obtained: No Antibiotics given: No Counseled pt/family regarding: lab results, diagnosis, rad results Medical Desision Making - Independent Historian Additional History obtained from: Spouse - Diagnostic Testing Diagnostic test were ordered, analyzed, and reviewed by me: Yes Radiological Interpretation: Reviewed by me, Teleradiologist Report - Risk of complications Low Risk: Low risk of morbidity from additional dx testing or treatment - Departure Departure Disposition: Home Clinical Impression: Nonspecific chest pain Condition: Stable Critical Care Time: No Referrals: WADE CLEMENTS NP [Primary Care Provider] - Follow up/PCP as directed Additional Instructions: Drink plenty of fluids. Take your medication as prescribed. Call your warp preparer and primary care provider tomorrow, 09/22/2023, to make arrangements for follow-up appointment to be seen in the next 3 to 5 days.
[2023-09-21] MEDS ORDERED: BABY ASPIRIN 81 MG CHEW ONE (19:16)
[2023-09-21] MEDS: BABY ASPIRIN 81 MG CHEW PO ONE (19:17)
[2023-09-21 19:21] LABS: Absolute Neutrophil Ct (ANC) 5.87 x10^3/uL (1.56-6.13); BASOPHIL % 0.6 % (0.1-1.2); Basophil (Absolute #) 0.06 x10^3/uL (0.01-0.08); Eosinophil % 5.7 % (0.7-5.8); Eosinophil (Absolute #) 0.53 x10^3/uL (0.04-0.36); Hematocrit 40.5 % (34.1-44.9); Hemoglobin 13.4 g/dL (11.2-15.7); IMMATURE GRAN # 0.05 x10^3u/L (0.001-0.031); IMMATURE GRAN % 0.5 % (0.001-0.429); Lymphocyte (Absolute #) 2.09 x10^3/uL (1.18-3.74); Lymphocytes % 22.4 % (19.3-51.7); Mean Cell Volume 93.1 fL (79.4-94.8); Mean Corpuscular Hemoglobin 30.8 pg (25.6-32.2); Mean Corpuscular Hgb Concent. 33.1 g/dL (32.2-35.5); Mean Platelet Volume 9.5 fL (9.4-12.3); Monocyte (Absolute #) 0.75 x10^3/uL (0.24-0.86); Neutrophil % 62.8 % (34.0-71.1); Platelet Count 266 x10^3/uL (182-369); Red Blood Count 4.35 x10^6/uL (3.93-5.22); Red Cell Distribution Width 13.2 % (11.7-14.4); White Blood Count 9.4 x10^3/uL (3.98-10.04)
[2023-09-21 19:44] LABS: ALBUMIN 4.4 g/dL (3.5-5.0); ANION GAP 12.2 MEQ/L (5-15); BILIRUBIN,TOTAL 0.7 mg/dL (0.2-1.3); Calcium 9.5 mg/dL (8.4-10.2); Creatinine 1 0.66 mg/dL (0.52-1.04); EST GLOMERULAR FILTRATION RATE 95.5 ML/MIN; MAGNESIUM 2.2 mg/dL (1.6-2.3); Potassium 4.2 mmol/L (3.5-5.1); Total Protein 7.6 g/dL (6.3-8.2)
[2023-09-21] MEDS ORDERED: BENADRYL 50 MG/ML ONE (20:42)
[2023-09-21] MEDS ORDERED: solu-MEDROL ONE (20:42)
[2023-09-21] MEDS ORDERED: Sterile H2O 10 ml IJ ONE (20:42)
[2023-09-21] MEDS: BENADRYL 50 MG/ML IV ONE (20:44)
[2023-09-21] MEDS: solu-MEDROL 125 MG, Sterile H2O 10 ml 2 ML IV ONE (20:44)
[2023-09-21] MEDS ORDERED: TRANDATE 20 MG/4 ML SYRINGE IV ONE (21:21)
[2023-09-21] MEDS: TRANDATE 20 MG/4 ML SYRINGE IV ONE (21:21)
[2023-09-21 23:12] VITALS: BP 164/94; PULSE 74; RESP 18; O2SAT 96
--- NOTE | 2023-09-22 08:42 | XRAY ---
Indication: Chest pain. Comparison: October 10, 2022 Portable chest less inflated with new bibasilar discoid atelectasis/scarring. No focal infiltrate, consolidation, or large effusion. Heart and mediastinal structures within normal limits. Bony thorax intact again with osteopenia and degenerative changes. Impression: Nonacute underinflated chest again with chronic features.
--- NOTE | 2023-09-22 08:44 | XRAY ---
Indication: Elevated d-dimer. Pulmonary embolus. Multiple contiguous axial images obtained through the chest using 80 cc Isovue 370 contrast and PE protocol. Comparison: CT chest high resolution exam March 25, 2023 Good opacification pulmonary arteries to include the lobar and segmental branches. No pulmonary embolus. Heart not enlarged. Aorta is normal in course and caliber. No pathologic mediastinal/hilar lymphadenopathy. Lungs inflated again with minimal peripheral fibrosis/scarring. No suspicious pulmonary mass/nodule, infiltrate, or effusion. Bony thorax intact again with mild/moderate degenerative changes throughout spine and stable 7 mm T1 benign sclerotic lesion. Limited upper abdomen again demonstrates cholecystectomy with pneumobilia. Impression: 1. Negative pulmonary embolus. No new/acute cardiopulmonary abnormalities. 2. Again chronic findings including pulmonary fibrosis/scarring, cholecystectomy with pneumobilia, and chronic bony findings.
== END 2023-09-21 23:13 | disposition home or self-care (01) ==
LOC: ED 18:57
DX: R07.9 Chest pain, unspecified (principal); R10.13 Epigastric pain; I10 Essential (primary) hypertension; E78.5 Hyperlipidemia, unspecified; E11.9 Type 2 diabetes mellitus without complications; Z79.891 Long term (current) use of opiate analgesic; Z79.899 Other long term (current) drug therapy
CPT/HCPCS: 36000; 36415; 71045; 71260; 80053; 83735; 83880; 84484; 85025; 85379; 93005; 93041; 94760; 96374; 96375; 99285; J1200; J2919; A9270-GY

== ENCOUNTER 2024-07-27 11:31 | Emergency (ER) | payer MEDICARE, OTHER ==
--- NOTE | 2024-07-27 12:02 | ERPHSYRPT ---
- History of Present Illness Time Seen by Provider: 07/27/24 11:50 Historian: patient, family Exam Limitations: no limitations Physician History: This is a morbidly obese 69-year-old white female patient of nurse practitioner Donato who arrives by private vehicle with a complaint of lower midline sternal pain and epigastric pain that she describes as sharp, stabbing and severe. She stated that the pain started yesterday, 07/26/2024. The pain does not radiate anywhere. Patient states she has had an acute myocardial infarction in the past but has not required cardiac stents or coronary artery bypass past surgery. Her cupola liner is Dr. Marrero. Timing/Duration: yesterday Activities at Onset: none Quality: sharpness, stabbing Location: substernal (Lower midline), epigastric Chest Pain Radiation: no radiation Severity of Pain-Max: moderate Severity of Pain-Current: none Modifying Factors: Improves With: nitroglycerin, aspirin Associated Symptoms: abdominal pain (Epigastrium), No shortness of breath, No cough, No hurts to breathe, No dizziness Prior Chest Pain/Cardiac Workup: heart attack Nitro Today/Relief: provided at home, complete relief Aspirin Treatment Today: 81 mg x 4, provided at home (Within the last 24 hours) Allergies/Adverse Reactions: Iodinated Contrast Media Allergy (Severe, Verified 07/27/24 12:18) Anaphylactic Reaction nitrofurantoin [From Macrodantin] Allergy (Severe, Verified 07/27/24 12:18) Anaphylactic Reaction acetaminophen [From Vicodin] Allergy (Unknown, Verified 07/27/24 12:18) Itching amoxicillin [From Augmentin] Allergy (Unknown, Verified 07/27/24 12:18) Vomiting clavulanic acid [From Augmentin] Allergy (Unknown, Verified 07/27/24 12:18) Vomiting fentanyl Allergy (Unknown, Verified 07/27/24 12:18) Hives hydrocodone [From Vicodin] Allergy (Unknown, Verified 07/27/24 12:18) Itching hydromorphone [From Dilaudid] Allergy (Unknown, Verified 07/27/24 12:18) Hives Sulfa (Sulfonamide Antibiotics) Allergy (Unknown, Verified 07/27/24 12:18) Hives sulfamethoxazole [From Septra] Allergy (Unknown, Verified 07/27/24 12:18) Vomiting trimethoprim [From ] Allergy (Verified 07/27/24 12:18) Vomiting Home Medications: Amlodipine Besylate 5 mg [Norvasc 5 mg] 5 mg PO DAILY 01/19/21 [History] Aspirin 81 mg PO HS 01/19/21 [History] Atorvastatin Calcium [Lipitor] 20 mg PO HS 01/19/21 [History] Carvedilol [Coreg ] 12.5 mg PO BID 01/19/21 [History] Dicyclomine HCl 20 mg [Bentyl 20 mg] 20 mg PO TID PRN PRN 01/19/21 [History] Nitroglycerin 0.4 mg SL Q5MIN PRN MR X 3 PRN 01/19/21 [History] Oxybutynin Chloride [Oxybutynin Chloride ER] 15 mg PO BID 01/19/21 [History] lisinopriL [Lisinopril] 20 mg PO HS 01/19/21 [History] Alendronate Sodium 70 mg [Fosamax 70 MG] 70 mg PO WEEKLY 06/14/21 [History] Benzonatate 100 mg PO TID PRN 01/15/22 [History] Cholecalciferol (Vitamin D3) [Vitamin D] 50,000 unit PO WEEKLY 09/21/23 [History] Nortriptyline HCl 25 mg PO HS 09/21/23 [History] Tramadol HCl 50 mg [Ultram 50 mg] 50 mg PO BID PRN 09/21/23 [History] Venlafaxine HCl ER 75 mg [Effexor XR 75 MG] 75 mg PO DAILY 09/21/23 [History] Hx Tetanus, Diphtheria Vaccination/Date Given: Yes Hx Influenza Vaccination/Date Given: No Hx Pneumococcal Vaccination/Date Given: No Travel Risk - International Travel Have you traveled outside of the country in past 3 weeks: No - Emerging Infectious Disease Are you exhibiting symptoms associated with any current EIDs: No - Review of Systems Constitutional: No Symptoms Eyes: No Symptoms Ears, Nose, & Throat: No Symptoms Respiratory: No Symptoms Cardiac: Chest Pain (Lower midline sternum and epigastrium) Abdominal/Gastrointestinal: Abdominal Pain (History) Genitourinary Symptoms: No No Symptoms Musculoskeletal: No Symptoms Skin: No Symptoms Neurological: No Symptoms Psychological: No Symptoms Endocrine: No Symptoms Hematologic/Lymphatic: No Symptoms Immunological/Allergic: No Symptoms All Other Systems: Reviewed and Negative - Past Medical History Pertinent Past Medical History: Yes Neurological History: Stroke ENT History: No Pertinent History Cardiac History: Hypertension, Myocardial Infarction ([place]), Other Respiratory History: Asthma Endocrine Medical History: No Pertinent History Musculoskeletal History: No Pertinent History GI Medical History: Hemorrhoids, Polyps History: Other Psycho-Social History: Anxiety, Depression Female Reproductive Disorders: No Pertinent History Other Medical History: nodule on lung and adrenal gland, frequent UTI, mitral valve prolapse. Phone Banker: Dr. Marrero - Past Surgical History Past Surgical History: Yes Neuro Surgical History: No Pertinent History Cardiac: Cardiac Catheterization Respiratory: No Pertinent History Gastrointestinal: Cholecystectomy Genitourinary: No Pertinent History Musculoskeletal: Orthopedic Surgery Female Surgical History: Hysterectomy, Section, Tubal Ligation Other Surgical History: left ankle, rotator cuff, carpal tunnel, blockage to rt corotid - Social History Smoking Status: Never smoker Exposure to second hand smoke: Yes Drug Use: none Patient Lives Alone: No - Social Determinants of Health Will the patient participate in the screening: Yes Do you worry about a steady place to live?: No In the past 12 months,have you had to go without utilities?: No Transportation Issues: No Has anyone in your support network made you feel unsafe?: No Have you or anyone in your house had to go w/o enough food: No - Nursing Vital Signs Nursing Vital Signs: Initial Vital Signs Pulse Rate 89 07/27/24 11:33 Respiratory Rate 20 07/27/24 11:33 Blood Pressure 155/122 07/27/24 11:33 O2 Sat by Pulse Oximetry 97 07/27/24 11:33 Pain Scale Pain Intensity 9 - Physical Exam General Appearance: no apparent distress, alert, anxiety, obese Eye Exam: PERRL/EOMI, eyes nml inspection Ears, Nose, Throat Exam: normal ENT inspection, moist mucous membranes Neck Exam: normal inspection, non-tender Respiratory Exam: normal breath sounds, lungs clear, airway intact, No respiratory distress Cardiovascular Exam: regular rate/rhythm, normal heart sounds, normal peripheral pulses Gastrointestinal/Abdomen Exam: soft, normal bowel sounds, No tenderness Pelvic Exam: not done Rectal Exam: not done Back Exam: normal inspection, normal range of motion, No CVA tenderness, No vertebral tenderness Extremity Exam: normal inspection, normal range of motion, pelvis stable Neurologic Exam: alert, oriented x 3, cooperative, director executive communications II-XII nml as tested, nml cerebellar function, nml station & gait, sensation nml Skin Exam: normal color, warm, dry Lymphatic Exam: No adenopathy SpO2 Interpretation: normal SpO2: 97 O2 Delivery: Room Air - Course Nursing assessment & vital signs reviewed: Yes EKG Interpreted by Me: RATE (85), Sinus Rhythm, NORMAL AXIS, NORMAL INTERVALS, NORMAL QRS, Other (QTc is 421 there is no evidence of any acute ischemia on today's twelve-lead EKG) Ordered Tests: Active Orders 24 hr Category Date Time Status Commercial Lines Account Executive STAT Care 07/27/24 12:02 Active EKG-ER Only STAT Care 07/27/24 12:02 Active EKG-ER Only STAT Care 07/27/24 13:29 Active IV Insertion STAT Care 07/27/24 12:02 Active Pulse Oximetry (ED) STAT Care 07/27/24 12:02 Active CHEST 1 VIEW (PORTABLE) Stat Exams 07/27/24 12:02 Completed CBC W DIFF Stat Lab 07/27/24 12:15 Completed CMP Stat Lab 07/27/24 12:15 Completed MAGNESIUM Stat Lab 07/27/24 12:15 Completed TROPONIN Q4H Lab 07/27/24 12:15 Completed TROPONIN Q4H Lab 07/27/24 14:36 Completed TROPONIN Q4H Lab 07/27/24 20:15 Ordered Medication Summary Discontinued Medications Generic Name Dose Route Start Last Admin Trade Name Freq PRN Reason Stop Dose Admin Aspirin 324 mg 07/27/24 12:02 07/27/24 12:45 Aspirin 81 Mg Tab.Chew PO 07/27/24 12:03 324 mg STAT ONE Administration Aspirin Confirm 07/27/24 12:42 Aspirin 81 Mg Tab.Chew Administered 07/27/24 12:43 Dose 324 mg .ROUTE .STK-MED ONE Nitroglycerin 0.4 mg 07/27/24 12:02 07/27/24 12:45 Nitroglycerin 0.4 Mg (Ed) 0.4 Mg Tab.Subl SL 07/27/24 12:03 0.4 mg STAT ONE Administration Nitroglycerin Confirm 07/27/24 12:42 Nitroglycerin 0.4 Mg (Ed) 0.4 Mg Tab.Subl Administered 07/27/24 12:43 Dose 0.4 mg SL .STK-MED ONE Ondansetron HCl 4 mg 07/27/24 12:02 07/27/24 12:46 Ondansetron Hcl 4 Mg/2 Ml Vial IV 07/27/24 12:03 4 mg STAT ONE Administration Ondansetron HCl Confirm 07/27/24 12:42 Ondansetron Hcl 4 Mg/2 Ml Vial Administered 07/27/24 12:43 Dose 4 mg .ROUTE .STK-MED ONE Lab/Rad Data: Laboratory Result Diagrams 07/27/24 12:15 07/27/24 12:15 Laboratory Results 07/27/24 07/27/24 07/27/24 Range/Units 14:36 12:15 12:15 WBC (3.98-10.04) x10^3/uL RBC (3.93-5.22) x10^6/uL Hgb (11.2-15.7) g/dL Hct (34.1-44.9) % MCV (79.4-94.8) fL MCH (25.6-32.2) pg MCHC (32.2-35.5) g/dL RDW (11.7-14.4) % Plt Count (182-369) x10^3/uL MPV (9.4-12.3) fL Gran % (34.0-71.1) % Immature Gran % (Auto) (0.001-0.429) % Nucleat RBC Rel Count (0.00-0.2) % Eos # (Auto) (0.04-0.36) x10^3/uL Immature Gran # (Auto) (0.001-0.031) x10^3u/L Absolute Lymphs (auto) (1.18-3.74) x10^3/uL Absolute Monos (auto) (0.24-0.86) x10^3/uL Absolute Nucleated RBC (0.00-0.012) x10^3u/L Lymphocytes % (19.3-51.7) % Monocytes % (4.7-12.5) % Eosinophils % (0.7-5.8) % Basophils % (0.1-1.2) % Absolute Granulocytes (1.56-6.13) x10^3/uL Basophils # (0.01-0.08) x10^3/uL Sodium 139 (135-145) mmol/L Potassium 4.2 (3.5-5.1) mmol/L Chloride 103 (98-107) mmol/L Carbon Dioxide 26 (22-30) mmol/L Anion Gap 14.3 (5-15) MEQ/L BUN 15 (7-17) mg/dL Creatinine 0.54 (0.52-1.04) mg/dL Estimated GFR 99.6 ML/MIN Glucose 102 (74-106) mg/dL Calcium 9.8 (8.4-10.2) mg/dL Magnesium 2.0 (1.6-2.3) mg/dL Total Bilirubin 0.90 (0.2-1.3) mg/dL AST 38 H (14-36) U/L ALT 47 H (0-35) U/L Alkaline Phosphatase 84 (38-126) U/L Troponin I < 0.012 < 0.012 (0.000-0.033) ng/mL Serum Total Protein 7.1 (6.3-8.2) g/dL Albumin 4.5 (3.5-5.0) g/dL / Range/Units 12:15 WBC 12.8 H (3.98-10.04) x10^3/uL RBC 4.69 (3.93-5.22) x10^6/uL Hgb 14.7 (11.2-15.7) g/dL Hct 43.8 (34.1-44.9) % MCV 93.4 (79.4-94.8) fL MCH 31.3 (25.6-32.2) pg MCHC 33.6 (32.2-35.5) g/dL RDW 14.1 (11.7-14.4) % Plt Count 307 (182-369) x10^3/uL MPV 9.4 (9.4-12.3) fL Gran % 66.2 (34.0-71.1) % Immature Gran % (Auto) 2.9 H (0.001-0.429) % Nucleat RBC Rel Count 0.0 (0.00-0.2) % Eos # (Auto) 0.44 H (0.04-0.36) x10^3/uL Immature Gran # (Auto) 0.37 H (0.001-0.031) x10^3u/L Absolute Lymphs (auto) 2.34 (1.18-3.74) x10^3/uL Absolute Monos (auto) 1.11 H (0.24-0.86) x10^3/uL Absolute Nucleated RBC 0.00 (0.00-0.012) x10^3u/L Lymphocytes % 18.3 L (19.3-51.7) % Monocytes % 8.7 (4.7-12.5) % Eosinophils % 3.4 (0.7-5.8) % Basophils % 0.5 (0.1-1.2) % Absolute Granulocytes 8.43 H (1.56-6.13) x10^3/uL Basophils # 0.07 (0.01-0.08) x10^3/uL Sodium (135-145) mmol/L Potassium (3.5-5.1) mmol/L Chloride (98-107) mmol/L Carbon Dioxide (22-30) mmol/L Anion Gap (5-15) MEQ/L BUN (7-17) mg/dL Creatinine (0.52-1.04) mg/dL Estimated GFR ML/MIN Glucose (74-106) mg/dL Calcium (8.4-10.2) mg/dL Magnesium (1.6-2.3) mg/dL Total Bilirubin (0.2-1.3) mg/dL AST (14-36) U/L ALT (0-35) U/L Alkaline Phosphatase (38-126) U/L Troponin I (0.000-0.033) ng/mL Serum Total Protein (6.3-8.2) g/dL Albumin (3.5-5.0) g/dL - Progress Progress: improved, re-examined Air Movement: good Progress Note: 07/27/24 12:52 My medical decision making and the assignment of moderate complexity to this patient's medical issue today is based on review of the patient's past medical history, review the patient's medication list, review the patient drug allergy list, history present illness and physical findings on examination. The workup in this patient includes placement of intravenous line, CBC, CMP, magnesium level, troponin level, BNP, chest x-ray, twelve-lead EKG. Differential diagnosis includes but is not limited to electrolyte abnormalities, arrhythmia, myocardial infarction, muscle skeletal pain I interpreted the preliminary chest x-ray report. Based on my interpretation, I see no acute cardiopulmonary process. The final report of the chest x-ray was interpreted by the radiologist and I reviewed the impression. The impression states no consolidation or pleural effusion. 07/27/24 14:00 I interpreted the patient's laboratory data results. Based on the laboratory data results, there are no acute, emergent medical issues. Given the fact the patient has had a history of myocardial infarction, we will repeat a 3-hour troponin level and 3-hour twelve-lead EKG. If these are normal, we will discharge the patient to home. Clinically, her chest pain has resolved. The repeat twelve-lead EKG was performed on 07/27/2024 at 1338. The heart rate is 74 bpm. The pattern is normal sinus rhythm. There is normal axis deviation, normal QRS and normal intervals. There is no evidence of acute ischemia. QTc is 409. This twelve-lead EKG is actually improved over the prior twelve-lead EKG. 07/27/24 15:10 The repeat troponin is again normal. The patient's symptoms have resolved. We will discharge this patient to home Blood Culture(s) Obtained: Yes Antibiotics given: No Counseled pt/family regarding: lab results, diagnosis, need for follow-up, rad results Medical Desision Making - Diagnostic Testing Diagnostic test were ordered, analyzed, and reviewed by me: Yes Radiological Interpretation: Interpreted by me, Reviewed by me, Teleradiologist Report - Risk of complications Low Risk: Low risk of morbidity from additional dx testing or treatment - Departure Departure Disposition: Home Clinical Impression: Epigastric pain, Asymptomatic hypertension Condition: Stable Critical Care Time: No Referrals: WADE CLEMENTS NP [Primary Care Provider, [facility]] - Follow up/PCP as directed Additional Instructions: Drink plenty of fluids. Avoid fatty greasy spicy foods. Call your prescribing provider today to discuss outpatient management of your hypertension. Continue your medications as prescribed. Keep a morning noon and night blood pressure reading log and write it down. Keep this for 48 hours. Call your primary care provider today as instructed.
[2024-07-27 12:37] LABS: Absolute Neutrophil Ct (ANC) 8.43 x10^3/uL (1.56-6.13); BASOPHIL % 0.5 % (0.1-1.2); Basophil (Absolute #) 0.07 x10^3/uL (0.01-0.08); Eosinophil % 3.4 % (0.7-5.8); Eosinophil (Absolute #) 0.44 x10^3/uL (0.04-0.36); Hematocrit 43.8 % (34.1-44.9); Hemoglobin 14.7 g/dL (11.2-15.7); IMMATURE GRAN # 0.37 x10^3u/L (0.001-0.031); IMMATURE GRAN % 2.9 % (0.001-0.429); Lymphocyte (Absolute #) 2.34 x10^3/uL (1.18-3.74); Lymphocytes % 18.3 % (19.3-51.7); Mean Cell Volume 93.4 fL (79.4-94.8); Mean Corpuscular Hemoglobin 31.3 pg (25.6-32.2); Mean Corpuscular Hgb Concent. 33.6 g/dL (32.2-35.5); Mean Platelet Volume 9.4 fL (9.4-12.3); Monocyte (Absolute #) 1.11 x10^3/uL (0.24-0.86); Monocytes % 8.7 % (4.7-12.5); Neutrophil % 66.2 % (34.0-71.1); Platelet Count 307 x10^3/uL (182-369); Red Blood Count 4.69 x10^6/uL (3.93-5.22); Red Cell Distribution Width 14.1 % (11.7-14.4); White Blood Count 12.8 x10^3/uL (3.98-10.04)
[2024-07-27] MEDS ORDERED: Zofran 4 MG/2 ML VIAL ONE (12:42)
[2024-07-27] MEDS ORDERED: Nitrostat 0.4 MG (ED) SL ONE (12:42)
[2024-07-27] MEDS ORDERED: BABY ASPIRIN 81 MG CHEW ONE (12:42)
--- NOTE | 2024-07-27 12:44 | XRAY ---
CLINICAL HISTORY: Chest pain COMPARISON: No prior studies available for comparison. TECHNIQUE: X-ray images of the chest were obtained in anteroposterior projections. FINDINGS: Pulmonary Parenchyma: Lungs are clear bilaterally. No evidence of consolidation, collapse, or focal opacities. No pulmonary nodules identified. No evidence of pleural effusion or pleural thickening. Heart and Mediastinum: Heart size is normal. No mediastinal widening or masses. No hilar or mediastinal lymphadenopathy. Bony Thorax: Thoracic spine spondylotic changes. Soft Tissues: Soft tissues overlying the chest wall are unremarkable. IMPRESSION: No evidence of consolidation or pleural effusion. Electronically Signed by: Zia Morrissey MD. (07/27/2024 12:40:01 EDT)
[2024-07-27] MEDS: Nitrostat 0.4 MG (ED) SL ONE (12:45)
[2024-07-27] MEDS: BABY ASPIRIN 81 MG CHEW PO ONE (12:45)
[2024-07-27] MEDS: Zofran 4 MG/2 ML VIAL IV ONE (12:46)
[2024-07-27 12:48] LABS: ALBUMIN 4.5 g/dL (3.5-5.0); ANION GAP 14.3 MEQ/L (5-15); BILIRUBIN,TOTAL 0.9 mg/dL (0.2-1.3); Calcium 9.8 mg/dL (8.4-10.2); Creatinine 1 0.54 mg/dL (0.52-1.04); EST GLOMERULAR FILTRATION RATE 99.6 ML/MIN; Potassium 4.2 mmol/L (3.5-5.1); Total Protein 7.1 g/dL (6.3-8.2)
[2024-07-27 14:10] VITALS: RESP 15
[2024-07-27 15:48] VITALS: BP 167/114; PULSE 68; O2SAT 98
== END 2024-07-27 15:54 | disposition home or self-care (01) ==
LOC: ED 11:31
DX: R10.13 Epigastric pain (principal); I10 Essential (primary) hypertension; R07.9 Chest pain, unspecified; Z79.899 Other long term (current) drug therapy
CPT/HCPCS: 36415; 71045; 80053; 83735; 84484; 85025; 93005; 93041; 94760; 96374; 99284; 99285; J2405; A9270-GY